=== PATIENT | female | born 1935 | race Caucasian/White ===

== ENCOUNTER → 2016-05-11 | Outpatient (CLI) | payer MEDICARE, BC | LOC: OD 11:09 | PROVIDERS: ATTEND Family Medicine | DX: E11.9 Type 2 diabetes mellitus without complications (principal) | CPT/HCPCS: 36415; 83036 ==

== ENCOUNTER 2016-09-19 13:57 | Emergency (ER) | payer MEDICARE, BC ==
--- NOTE | 2016-09-19 15:24 | RADIOLOGY REPORT (SQ) ---
EXAM DESCRIPTION: SHOULDER RIGHT 2 OR MORE VIEWS COMPLETED DATE/TIME: 09/19/2016 2:52 pm REASON FOR STUDY: fell sunday COMPARISON: None. NUMBER OF VIEWS: Three views. TECHNIQUE: Internal rotation, external rotation, and Y view images acquired of the right shoulder. LIMITATIONS: None. FINDINGS: MINERALIZATION: Normal. BONES: No acute fracture or dislocation. No worrisome bone lesions. JOINTS: No dislocation. VISUALIZED LUNGS AND RIBS: No pneumothorax. No rib fracture. SOFT TISSUES: No radiopaque foreign body. OTHER: No other significant finding. IMPRESSION: NEGATIVE STUDY OF THE RIGHT SHOULDER. NO RADIOGRAPHIC EVIDENCE OF ACUTE INJURY. TECHNICAL DOCUMENTATION: JOB ID: [id number] [employer]- All Rights Reserved
--- NOTE | 2016-09-19 16:35 | ER Document Report ---
ED Extremity Problem, Upper - General Chief Complaint: Shoulder Pain Stated Complaint: FALL/RIGHT SHOULDER PAIN Time Seen by Provider: 09/19/16 16:23 Mode of Arrival: Wheelchair Information source: Patient, Relative Notes: This is an 81-year-old female who presents with right shoulder pain. She states that one week ago she was bowling with friends when she tripped and fell forward. She states that she injured her right shoulder at the time. She did not hit her head did not lose consciousness. Initially she felt that her arm was improving however the past 2 days she has had increased pain to the right shoulder with certain movements. TRAVEL OUTSIDE OF THE [place] IN LAST 30 DAYS: No - Related Data Allergies/Adverse Reactions: Sulfa (Sulfonamide Antibiotics) Allergy (Unknown, Verified 03/23/16 02:38) Past Medical History - General Information source: Patient - Social History Smoking Status: Unknown if Ever Smoked Family History: Reviewed & Not Pertinent Patient has suicidal ideation: No Patient has homicidal ideation: No - Past Medical History Cardiac Medical History: Reports: Hx Hypercholesterolemia Denies: Hx Atrial Fibrillation, Hx Congestive Heart Failure, Hx Coronary Artery Disease, Hx Heart Attack, Hx Hypertension, Hx Peripheral Vascular Disease , Hx Heart Murmur Pulmonary Medical History: Denies: Hx Tuberculosis Neurological Medical History: Reports: Hx Cerebrovascular Accident - Multiple TIAs. Denies: Hx Seizures Endocrine Medical History: Denies: Hx Graves' Disease, Hx Hyperthyroidism, Hx Hypothyroidism Renal/ Medical History: Reports: Hx Kidney Stones. Denies: Hx Peritoneal Dialysis GI Medical History: Reports: Hx Gastroesophageal Reflux Disease, Hx Ulcer. Denies: Hx Cirrhosis, Hx Crohn's Disease, Hx Hepatitis, Hx Hiatal Hernia, Hx Irritable Bowel, Hx Liver Failure Musculoskeltal Medical History: Denies Hx Arthritis, Denies Hx Multiple Sclerosis Psychiatric Medical History: Reports: Hx Depression Denies: Hx Bipolar Disorder, Hx Dementia, Hx Post Traumatic Stress Disorder, Hx Schizophrenia Infectious Medical History: Denies: Hx Hepatitis Past Surgical History: Reports: Hx Appendectomy - 1958, Hx Cholecystectomy - 1990, Hx Hysterectomy - 1988, Hx Tubal Ligation. Denies: Hx Bowel Surgery, Hx Section, Hx Colostomy, Hx Coronary Artery Bypass Graft, Hx Gastric Bypass Surgery, Hx Herniorrhaphy, Hx Mastectomy, Hx Pacemaker, Hx Tonsillectomy - Immunizations Hx Diphtheria, Pertussis, Tetanus Vaccination: Yes Hx Pneumococcal Vaccination: 01/21/11 Review of Systems - Review of Systems Constitutional: No symptoms reported. denies: Chills, Fever EENT: No symptoms reported Cardiovascular: No symptoms reported. denies: Chest pain Respiratory: No symptoms reported. denies: Short of breath Gastrointestinal: No symptoms reported Genitourinary: No symptoms reported Musculoskeletal: See HPI Skin: No symptoms reported Hematologic/Lymphatic: No symptoms reported Neurological/Psychological: No symptoms reported Physical Exam - Vital signs Vitals: Temp Pulse Resp BP Pulse Ox 98.1 F 87 18 139/81 H 99 09/19/16 14:21 09/19/16 14:21 09/19/16 14:09/19/16 14:21 09/19/16 14:21 - Notes Notes: PHYSICAL EXAMINATION: GENERAL: Well-appearing frail elderly female, pleasant and conversant and in no acute distress. HEAD: Atraumatic, normocephalic. EYES: Pupils equal round and reactive to light, extraocular movements intact, sclera anicteric, conjunctiva are normal. ENT: nares patent, oropharynx clear without exudates. Moist mucous membranes. NECK: Normal range of motion, supple without lymphadenopathy. No midline TTP LUNGS: Breath sounds clear to auscultation bilaterally and equal. No wheezes rales or rhonchi. HEART: Regular rate and rhythm without murmurs ABDOMEN: Soft, nontender, normoactive bowel sounds. EXTREMITIES: Normal range of motion R SHOULDER: No discoloration or external deformity. TTP anterior and posterior shoulder, and R paracervical muscles. Pulses intact, DNVI NEUROLOGICAL: Cranial nerves grossly intact. Normal speech. no Gross focal motor or sensory deficits appreciated PSYCH: Normal mood, normal affect. SKIN: Warm, Dry, normal turgor, no rashes or lesions noted. Course - Vital Signs Vital signs: Temp Pulse Resp BP Pulse Ox 98.1 F 87 18 139/81 H 99 09/19/16 14:21 09/19/16 14:21 09/19/16 14:09/19/16 14:21 09/19/16 14:21 - Diagnostic Test Radiology reviewed: Image reviewed - R shoulder: no fracture, Reports reviewed Discharge - Discharge Clinical Impression: Right shoulder strain Qualifiers: Encounter type: initial encounter Qualified Code(s): S46.911A - Strain of unspecified muscle, fascia and tendon at shoulder and upper arm level, right arm , initial encounter Condition: Stable Additional Instructions: Shoulder Injury You have injured your shoulder. This usually results from stretching or tearing of the tendons during trauma. Time and protection are required in order to heal properly. Many injuries are quite disabling, and should be taken seriously. Initial treatment includes cold packs and a sling to rest the shoulder. The physician has assessed the seriousness of your injury, and has outlined a treatment plan. Understand that this treatment may change, depending on how you progress. If a re-examination was recommended, it is important that you follow up as instructed. Some shoulder injuries (such as partial tear of the rotator cuff) are only suspected after you've failed to improve. Call us if there's severe pain, numbness, or loss of function. Prescriptions: Acetaminophen with Codeine [Tylenol #3 Tablet] 1 each PO Q6HP PRN #12 tablet PRN Reason: For Pain
[2016-09-19] MEDS ORDERED: ACETAMINOPHEN WITH CODEINE #3 TABLET PO ONE (16:38)
[2016-09-19 16:49] VITALS: BP 125/85
== END 2016-09-19 17:00 | disposition home or self-care (01) ==
LOC: ER 13:57
DX: S46.911A Strain of unspecified muscle, fascia and tendon at shoulder and upper arm level, right arm, initial encounter (principal); W01.0XXA Fall on same level from slipping, tripping and stumbling without subsequent striking against object, initial encounter; Y93.54 Activity, bowling; Y92.39 Other specified sports and athletic area as the place of occurrence of the external cause; E78.00 Pure hypercholesterolemia, unspecified; K21.9 Gastro-esophageal reflux disease without esophagitis; Z86.73 Personal history of transient ischemic attack (TIA), and cerebral infarction without residual deficits; Z88.2 Allergy status to sulfonamides; Z87.442 Personal history of urinary calculi; Z90.49 Acquired absence of other specified parts of digestive tract; Z90.710 Acquired absence of both cervix and uterus
CPT/HCPCS: 99283; 73030; L3650

== ENCOUNTER → 2016-09-21 | Outpatient (CLI) | payer MEDICARE, BC ==
[2016-09-21 09:17] LABS: ANION GAP 12 (5-19); BLOOD UREA NITROGEN 25 mg/dL (7-20); CALCIUM 10.2 mg/dL (8.4-10.2); CARBON DIOXIDE 23 mmol/L (22-30); CHLORIDE 107 mmol/L (98-107); CREATININE RESULT 0.96 mg/dL (0.52-1.25); Direct HDL 46 mg/dL (>40); GLUCOSE 106 mg/dL (75-110); POTASSIUM 4.2 mmol/L (3.6-5.0); SODIUM 141.8 mmol/L (137-145); TRIGLYCERIDES 122 mg/dL (<150)
[2016-09-21 09:27] LABS: DIRECT LDL 133 mg/dL (<100)
== END ==
LOC: OD 08:15
PROVIDERS: ATTEND Family Medicine
DX: E11.9 Type 2 diabetes mellitus without complications (principal); E78.5 Hyperlipidemia, unspecified; I10 Essential (primary) hypertension; Z79.899 Other long term (current) drug therapy
CPT/HCPCS: 36415; 80048; 80061; 82043; 83036; 84443

== ENCOUNTER 2017-05-19 22:29 | Emergency (ER) | payer MEDICARE, BC ==
[2017-05-19] MEDS ORDERED: MORPHINE SULFATE 10 MG/ML INJ IM ONE (23:45)
[2017-05-19] MEDS ORDERED: ONDANSETRON 4 MG TAB.RAPDIS PO ONE (23:45)
--- NOTE | 2017-05-19 23:54 | ER Document Report ---
ED General - General Chief Complaint: Fall Injury Stated Complaint: FALL R ARM INJURY Time Seen by Provider: 05/19/17 23:29 TRAVEL OUTSIDE OF THE [place] IN LAST 30 DAYS: No - HPI Patient complains to provider of: left arm pain Notes: Patient coming in after a trip and fall at home landing on her left side patient complains of left arm pain. Patient states most pain is at left wrist however does complain of elbow and left shoulder pain. Denies any loss of consciousness hitting her head is not on any blood thinning medication according to the patient. Patient resting comfortably upon my evaluation. - Related Data Allergies/Adverse Reactions: Sulfa (Sulfonamide Antibiotics) Allergy (Unknown, Verified 05/19/17 23:20) Past Medical History - Social History Smoking Status: Unknown if Ever Smoked Family History: Reviewed & Not Pertinent - Past Medical History Cardiac Medical History: Reports: Hx Hypercholesterolemia Denies: Hx Atrial Fibrillation, Hx Congestive Heart Failure, Hx Coronary Artery Disease, Hx Heart Attack, Hx Hypertension, Hx Peripheral Vascular Disease , Hx Heart Murmur Pulmonary Medical History: Denies: Hx Tuberculosis Neurological Medical History: Reports: Hx Cerebrovascular Accident - Multiple TIAs. Denies: Hx Seizures Endocrine Medical History: Denies: Hx Graves' Disease, Hx Hyperthyroidism, Hx Hypothyroidism Renal/ Medical History: Reports: Hx Kidney Stones. Denies: Hx Peritoneal Dialysis GI Medical History: Reports: Hx Gastroesophageal Reflux Disease, Hx Ulcer. Denies: Hx Cirrhosis, Hx Crohn's Disease, Hx Hepatitis, Hx Hiatal Hernia, Hx Irritable Bowel, Hx Liver Failure, Hx Pancreatitis Musculoskeltal Medical History: Denies Hx Arthritis, Denies Hx Multiple Sclerosis Psychiatric Medical History: Reports: Hx Depression Denies: Hx Bipolar Disorder, Hx Dementia, Hx Post Traumatic Stress Disorder, Hx Schizophrenia Infectious Medical History: Denies: Hx Hepatitis Past Surgical History: Reports: Hx Appendectomy - 195, Hx Cholecystectomy - 1990, Hx Hysterectomy - 1988, Hx Tubal Ligation. Denies: Hx Bowel Surgery, Hx Section, Hx Colostomy, Hx Coronary Artery Bypass Graft, Hx Gastric Bypass Surgery, Hx Herniorrhaphy, Hx Mastectomy, Hx Pacemaker, Hx Tonsillectomy - Immunizations Hx Diphtheria, Pertussis, Tetanus Vaccination: Yes Hx Pneumococcal Vaccination: 01/21/11 Review of Systems - Review of Systems Constitutional: No symptoms reported EENT: No symptoms reported Cardiovascular: No symptoms reported Respiratory: No symptoms reported Gastrointestinal: No symptoms reported Genitourinary: No symptoms reported Female Genitourinary: No symptoms reported Musculoskeletal: Other - Left arm pain Skin: No symptoms reported Hematologic/Lymphatic: No symptoms reported Neurological/Psychological: No symptoms reported -: Yes All other systems reviewed and negative Physical Exam - Vital signs Vitals: Temp Pulse Resp BP Pulse Ox 97.8 F 72 16 131/61 H 95 05/19/17 23:19 05/19/17 23:19 05/19/17 23:19 05/19/17 23:19 05/19/17 23:19 Interpretation: Normal - General General appearance: Appears well, Alert - HEENT Head: Normocephalic, Atraumatic Eyes: Normal Pupils: PERRL - Respiratory Respiratory status: No respiratory distress Chest status: Nontender Breath sounds: Normal Chest palpation: Normal - Cardiovascular Rhythm: Regular Heart sounds: Normal auscultation Murmur: No - Abdominal Inspection: Normal Distension: No distension Bowel sounds: Normal Tenderness: Nontender Organomegaly: No organomegaly - Back Back: Normal, Nontender - Extremities General upper extremity: Normal color, Normal ROM, Normal temperature. No: Normal inspection - Patient's examination of left wrist shows swelling decreased range of motion painful range of motion of the wrist. Patient also has tenderness to the left elbow and to the left shoulder however no deformities. Capillary refill intact General lower extremity: Normal inspection, Nontender, Normal color, Normal ROM , Normal temperature, Normal weight bearing. No: Flory's sign - Neurological Neuro grossly intact: Yes Cognition: Normal Orientation: AAOx4 Kacey Coma Scale Eye Opening: Spontaneous Holt Coma Scale Verbal: Oriented Kacey Coma Scale Motor: Obeys Commands Kacey Coma Scale Total: 15 Speech: Normal Motor strength normal: LUE, RUE, LLE, RLE Sensory: Normal - Psychological Associated symptoms: Normal affect, Normal mood - Skin Skin Temperature: Warm Skin Moisture: Dry Skin Color: Normal Course - Vital Signs Vital signs: Temp Pulse Resp BP Pulse Ox 97.8 F 72 16 131/61 H 95 05/19/17 23:19 05/19/17 23:19 05/19/17 23:19 05/19/17 23:19 05/19/17 23:19 Procedures - Immobilization Left Wrist Pre-Proc Neuro Vasc Exam: Normal Immobilizer type: Thumb spica Performed by: PCT Post-Proc Neuro Vasc Exam: Normal Alignment checked and good: Yes Discharge - Discharge Clinical Impression: Fracture of left distal radius Qualifiers: Encounter type: initial encounter Fracture type: closed Fracture morphology: unspecified fracture morphology Qualified Code(s): S52.502A - Unspecified fracture of the lower end of left radius, initial encounter for closed fracture Condition: Good Disposition: HOME, SELF-CARE Instructions: Fractured Radius ([facility]), Oral Narcotic Medication ([facility]) Additional Instructions: Take Tylenol Motrin for your pain. Take Ultram for severe pain. Please be careful in taking narcotic pain medication is that this will make you sleepy and unsteady on her feet increasing her risk of falling again. Please follow- up with orthopedic doctor provided. Prescriptions: Tramadol HCl [Ultram 50 mg Tablet] 50 mg PO ASDIR PRN #20 tablet PRN Reason: Referrals: MIKE PARNELL MD [Primary Care Provider] - Follow up as needed FRAN WEINSTEIN MD [ACTIVE STAFF] - 05/21/17 (Call for appointment)
--- NOTE | 2017-05-20 01:00 | RADIOLOGY REPORT (SQ) ---
EXAM DESCRIPTION: ELBOW LEFT OVER 2 VIEWS CLINICAL HISTORY: fall left arm pain wrist deformity COMPARISON: None. FINDINGS: 3 views of the left elbow. No acute fracture or dislocation. No definite joint effusion. Mild osteopenia. IMPRESSION: No acute fracture or dislocation.
--- NOTE | 2017-05-20 01:03 | RADIOLOGY REPORT (SQ) ---
EXAM DESCRIPTION: SHOULDER LEFT 2 OR MORE VIEWS CLINICAL HISTORY: fall left arm pain wrist deformity COMPARISON: None. FINDINGS: 3 views of the left shoulder. No acute fracture or dislocation. Osteopenia.. No abnormalities of the acromioclavicular joint. No left-sided rib fracture identified. No pneumothorax in the visualized left lung. Atherosclerotic calcification of the thoracic aorta. IMPRESSION: 1. No acute fracture or dislocation.
--- NOTE | 2017-05-20 01:04 | RADIOLOGY REPORT (SQ) ---
EXAM DESCRIPTION: WRIST LEFT 3 VIEWS CLINICAL HISTORY: fall left arm pain wrist deformity COMPARISON: None. FINDINGS: 3 views of the left wrist. Acute mildly displaced mildly dorsally angulated fracture of the distal left radial metaphysis. No definite ulnar fracture identified. Atherosclerotic vascular calcification. Chondrocalcinosis of the wrist. Osteopenia. Degenerative change of the first carpometacarpal joint. IMPRESSION: 1. Acute mildly displaced and dorsally angulated fracture of the distal left radial metaphysis.
[2017-05-20] MEDS ORDERED: ACETAMINOPHEN 325 MG TABLET PO ONE (01:55)
[2017-05-20] MEDS ORDERED: TRAMADOL HCL 50 MG TABLET PO ONE (02:17)
[2017-05-20 02:26] VITALS: BP 141/67
== END 2017-05-20 02:25 | disposition home or self-care (01) ==
LOC: ER 22:29
DX: S52.502A Unspecified fracture of the lower end of left radius, initial encounter for closed fracture (principal); M25.532 Pain in left wrist; M25.512 Pain in left shoulder; M25.522 Pain in left elbow; W19.XXXA Unspecified fall, initial encounter; Y93.89 Activity, other specified; Y92.009 Unspecified place in unspecified non-institutional (private) residence as the place of occurrence of the external cause; Z88.2 Allergy status to sulfonamides
CPT/HCPCS: 99283; 96372; 73080; 73030; 73110; 29125; A9270 ×3; J2270; S0119

== ENCOUNTER 2017-05-24 11:51 | Day surgery (SDC) | payer MEDICARE, BC ==
[2017-05-22 11:05] LABS: ABSOLUTE EOSINOPHILS # (AUTO) 0.1 10^3/uL (0.0-0.6); ABSOLUTE LYMPHOCYTES (AUTO) 1.4 10^3/uL (0.5-4.7); ABSOLUTE MONOCYTES (AUTO) 0.6 10^3/uL (0.1-1.4); ABSOLUTE NEUT (AUTO) 5.2 10^3/uL (1.7-8.2); BASOPHILS % (AUTO) 0.5 % (0-2); EOSINOPHILS % (AUTO) 1.9 % (0-6); HEMATOCRIT 36.6 % (36.0-47.0); HEMOGLOBIN 12.5 g/dL (12.0-15.5); LYMPHOCYTES % (AUTO) 19.5 % (13-45); MEAN CORPUSCULAR HEMOGLOBIN 32.4 pg (27.0-33.4); MEAN CORPUSCULAR HGB CONC 34.2 g/dL (32.0-36.0); MEAN CORPUSCULAR VOLUME 95 fl (80-97); PLATELET COUNT 216 10^3/uL (150-450); RED BLOOD COUNT 3.86 10^6/uL (3.72-5.28); RED CELL DISTRIBUTION WIDTH 13.9 % (11.5-14.0); SEGMENTED NEUTROPHILS % (AUTO) 70.1 % (42-78); TOTAL CELLS COUNTED % (AUTO) 100 %; WHITE BLOOD COUNT 7.4 10^3/uL (4.0-10.5)
[2017-05-22 11:09] LABS: APPEARANCE,URINE SLIGHTLY-CLOUDY; BILIRUBIN,URINE NEGATIVE (NEGATIVE); COLOR,URINE YELLOW; GLUCOSE, URINE NEGATIVE (NEGATIVE); KETONES,URINE NEGATIVE (NEGATIVE); URINE SPECIFIC GRAVITY 1.017
[2017-05-22 11:10] LABS: LEUKOCYTE ESTERASE,URINE LARGE (NEGATIVE); NITRITE,URINE NEGATIVE (NEGATIVE); PROTEIN,URINE NEGATIVE (NEGATIVE); UROBILINOGEN,URINE NEGATIVE mg/dL (<2.0)
[2017-05-22 11:27] LABS: ANION GAP 11 (5-19); BLOOD UREA NITROGEN 22 mg/dL (7-20); CALCIUM 10.2 mg/dL (8.4-10.2); CARBON DIOXIDE 27 mmol/L (22-30); CHLORIDE 102 mmol/L (98-107); GLUCOSE 106 mg/dL (75-110); POTASSIUM 3.9 mmol/L (3.6-5.0); SODIUM 139.5 mmol/L (137-145)
--- NOTE | 2017-05-22 11:59 | RADIOLOGY REPORT (SQ) ---
EXAM DESCRIPTION: CHEST PA/LATERAL COMPLETED DATE/TIME: 05/22/2017 11:13 am REASON FOR STUDY: PRE OP COMPARISON: Two-view chest 03/23/2016, 08/27/2011 EXAM PARAMETERS: NUMBER OF VIEWS: two views TECHNIQUE: Digital Frontal and Lateral radiographic views of the chest acquired. RADIATION DOSE: NA LIMITATIONS: none FINDINGS: LUNGS AND PLEURA: No opacities, masses or pneumothorax. No pleural effusion. MEDIASTINUM AND HILAR STRUCTURES: Fullness right paratracheal region likely represents tortuous brach iocephalic vessels, stable compared to 2011 HEART AND VASCULAR STRUCTURES: Heart normal size. No evidence for failure. BONES: Osteoporotic. Chronic appearing T5 vertebral body 25 to 50% compression deformity. HARDWARE: Clips right upper quadrant post cholecystectomy OTHER: No other significant finding. IMPRESSION: No acute findings TECHNICAL DOCUMENTATION: JOB ID: [id number] [employer]- All Rights Reserved
--- NOTE | 2017-05-22 13:03 | EKG REPORT ---
SEVERITY:- NORMAL ECG - SINUS RHYTHM : Confirmed by: Simon Chen MD 22-May-2017 13:01:35
[~2017-05-24 11:51] MED LIST: CEFAZOLIN 2 GM/D5W RTU 2 GM/50 ML RTUPB IV PRN; DEXAMETHASONE SOD PHOSPHATE INJ 4 MG/1 ML VIAL ONE; GLYCOPYRROLATE INJ 0.4 MG/2 ML VIAL ONE; LACTATED RINGERS 1000 ML IV PRN; LIDOCAINE 0.5% INJ-PF (5 MG/ML) 50 ML SDV SUBCUT PRN; ONDANSETRON HCL INJ/PF 4 MG/2 ML SDV ONE; SUCCINYLCHOLINE CHLORIDE INJ 200 MG/10 ML VIAL ONE
[2017-05-24 12:27] LABS: INTERNATIONAL RATION (INR) 0.97; PROTHROMBIN TIME 13.6 SEC (11.4-15.4)
[2017-05-24 12:28] LABS: PARTIAL THROMBOPLASTIN TIME 25.7 SEC (23.5-35.8)
[2017-05-24] MEDS ORDERED: FENTANYL CITRATE INJ/PF 100 MCG/2 ML AMPUL ONE (14:41)
[2017-05-24] MEDS ORDERED: HYDROMORPHONE HCL INJ/PF 2 MG/ML AMPULE ONE (14:42)
[2017-05-24] MEDS ORDERED: ACETAMINOPHEN 100 ML IV ONE (14:42)
[2017-05-24] MEDS ORDERED: PROPOFOL INJ 200 MG/20 ML VIAL IV ONE (14:42)
[2017-05-24] MEDS ORDERED: MIDAZOLAM 2 MG/2 ML INJ ONE (14:42)
[2017-05-24] MEDS ORDERED: MORPHINE SULFATE 10 MG/ML INJ IV PRN (15:26)
[2017-05-24] MEDS ORDERED: MEPERIDINE HCL/PF INJ 25 MG/1 ML DISP.SYRIN IV PRN (15:26)
[2017-05-24] MEDS ORDERED: DIPHENHYDRAMINE HCL 50 MG/ML VIAL IV PRN (15:26)
[2017-05-24] MEDS ORDERED: PROMETHAZINE HCL INJ 25 MG/1 ML VIAL IV PRN (15:26)
[2017-05-24] MEDS ORDERED: FENTANYL CITRATE INJ/PF 100 MCG/2 ML AMPUL IV PRN ×3 (15:26)
--- NOTE | 2017-05-24 16:35 | RADIOLOGY REPORT (SQ) ---
EXAM DESCRIPTION: NO CHG FLUORO; WRIST LEFT 2 VIEWS COMPLETED DATE/TIME: 05/24/2017 4:26 pm REASON FOR STUDY: ORIF LEFT WRIST S52.531A COLLES' FRACTURE OF RIGHT RADIUS, INIT FOR CLOS FX Z79.0 1 CORRECTION (CURRENT) USE OF ANTICOAGULANTS COMPARISON: 05/20/2017. FLUOROSCOPY TIME: 1 minutes 19 seconds. 3 images saved to PACS. TECHNIQUE: Intra-operative images acquired during surgical procedure to evaluate progress. NUMBER OF IMAGES: 3 images. LIMITATIONS: None. FINDINGS: Surgical repair of the distal radius fracture with placement of hardware. IMPRESSION: IMAGE(S) OBTAINED DURING PROCEDURE. COMMENT: Quality ID [id number]: Final reports for procedures using fluoroscopy that document radiation exp osure indices, or exposure time and number of fluorographic images (if radiation exposure indices are not available) Please consult full operative report of the attending physician for description of the procedure. TECHNICAL DOCUMENTATION: JOB ID: [id number] [employer]- All Rights Reserved
--- NOTE | 2017-05-24 16:35 | RADIOLOGY REPORT (SQ) ---
EXAM DESCRIPTION: NO CHG FLUORO; WRIST LEFT 2 VIEWS COMPLETED DATE/TIME: 05/24/2017 4:26 pm REASON FOR STUDY: ORIF LEFT WRIST S52.531A COLLES' FRACTURE OF RIGHT RADIUS, INIT FOR CLOS FX Z79.0 1 FDC (CURRENT) USE OF ANTICOAGULANTS COMPARISON: 05/20/2017. FLUOROSCOPY TIME: 1 minutes 19 seconds. 3 images saved to PACS. TECHNIQUE: Intra-operative images acquired during surgical procedure to evaluate progress. NUMBER OF IMAGES: 3 images. LIMITATIONS: None. FINDINGS: Surgical repair of the distal radius fracture with placement of hardware. IMPRESSION: IMAGE(S) OBTAINED DURING PROCEDURE. COMMENT: Quality ID [id number]: Final reports for procedures using fluoroscopy that document radiation exp osure indices, or exposure time and number of fluorographic images (if radiation exposure indices are not available) Please consult full operative report of the attending physician for description of the procedure. TECHNICAL DOCUMENTATION: JOB ID: [id number] [employer]- All Rights Reserved
--- NOTE | 2017-05-24 16:39 | Operative Report ---
Operative Report DATE OF SURGERY: 05/24/17 PREOPERATIVE DIAGNOSIS: Displaced left Colles' fracture POSTOPERATIVE DIAGNOSIS: Same OPERATION: ORIF of left distal radius fracture SURGEON: FRAN KNAPP ANESTHESIA: GA TISSUE REMOVED OR ALTERED: none COMPLICATIONS: none ESTIMATED BLOOD LOSS: less than 10mL INTRAOPERATIVE FINDINGS: as above PROCEDURE: Procedure In Detail: Patient was seen and evaluated in the preoperative holding area. The left upper extremity was initialized and marked. Patient received 2g of Ancef IV for bacterial prophylaxis. Patient was taken back to the operative room where transferred to the operative table and placed under general anesthesia. Once they were adequately anesthetized and a nonsterile tourniquet was placed on his left upper extremity. A surgical team debriefing was performed ensuring all instrumentation was available, the surgical procedure was discussed with possible concerns reviewed. The left upper extremity was prepped with chlorhexidine and alcohol and draped in a sterile fashion. A timeout was done identifying correct patient, procedure and extremity everyone in attendance agree with this and verbalized no concerns.The extremity was exsanguinated the tourniquet was inflated to 250 mmHg. A longitudinal skin incision was made via a volar approach of Storm along the FCR tendon sheath. The FCR tendon sheath was opened and the FCR retracted ulnarly, the palmar cutaneous patient median nerve was identified and protected throughout the entirety of the case. The radial artery was identified and retracted radially. Dissection was done down to the FPL which was carefully sweeped ulnarly. This brought me to the pronator quadratus which was elevated off of the distal radius via sharp dissection with a 15 blade to allow later repair. The fracture was then identified and a gentle reduction was performed. A near anatomic reduction was then obtained and a Sarah 4 hole volar distal radius plate was then placed into position and fixated with a K wire proximally x2. AP and lateral radiographs were then obtained demonstrating appropriate placement of the plate and near anatomic reduction of the fracture. I then used a large reduction tenaculum bringing the plate down to bone distally. I drilled the near cortex and placed a cortical screw bringing the plate further down to bone, avoiding any liftoff of the plate from the volar cortex that could cause flexor tendon irritation post-operativley. I then drilled the near cortex and to but not thru the far cortex and measured the appropriate size screw, locking screws were then placed in the remaining holes. The previous cortex screw was removed and replaced with a locking screw. I then drilled 1 additional screw were placed into the styloid giving further stability to the radial styloid piece. AP and lateral radius were then done confirming appropriate placement of plate with no evidence of penetration intra-articular or within the DRUJ. I then turned my attention to the proximal screws. I drilled bicortically bringing the plate down to bone with a cortex screw. The remaining 2 holes proximally were drilled bicortically placing the appropriate size cortex and the proximal most hole and a locking screw in the distal shaft hole. AP and lateral radiographs were done confirming appropriate placement of the plate and reduction of the fracture there was episcopal of radial height, radial inclination and volar tilt. No evidence of dorsal screw prominence or intra-articular penetration of the DRUJ or radiocarpal joint. I then copious irrigated the wound with normal saline. There was no evidence of DRUJ instability on examination, Negative Watkins's test, No crepitus with range of motion at the radiocarpal joint or DRUJ. I then closed the pronator quadratus with interrupted 3-0 Monocryl suture. Subcutaneous tissues were closed with interrupted 3-0 Monocryl suture. The skin was closed with a running subcuticular 4-0 Monocryl suture which was reinforced with Dermabond and Steri-Strips. 10 mL of 0.5% Marcaine were injected for postoperative pain control. The tourniquet was then deflated. Was dressed with sterile 4 x 4's and patient was placed in a well-padded volar splint with bias wrap. Sponge counts, instrument counts and needle counts were correct. There was no intraoperative complications patient tolerated procedure well stable to PACU. Postoperative plan: Patient will be switched to a removal brace at her first postoperative followup visit and begin range of motion. She is encouraged to start vitamin C 500 mg daily for 51 days. Will obtain radiographs at followup of the wrist.
--- NOTE | 2017-05-24 16:52 | PDOC DISCHARGE SUMMARY ---
Discharge Summary (SDC) - Discharge Final Diagnosis: ORIF of left distal radius fracture Date of Surgery: 05/24/17 Discharge Date: 05/24/17 Condition: Good Treatment or Instructions: Keep the splint dry clean and intact. Elevate left upper extremity and ice it as needed Call if patient develops any fevers chills increased pain. If not then follow-up in 10-14 days. Prescriptions: Oxycodone HCl/Acetaminophen [Percocet 5-325 mg Tablet] 1 tab PO ASDIR PRN #25 tablet PRN Reason: Referrals: MIKE PARNELL MD [Primary Care Provider] - Discharge Diet: As Tolerated Respiratory Treatments at Home: Deep Breathing/Coughing Discharge Activity: No Driving, No Lifting/Push/Pulling Report the Following to Your Physician Immediately: Shortness of Breath, Vomiting, Fever over 101 Degrees, Unusual Bleeding, Redness, Swelling, Warmth, Increased Soreness, Drainage-Yellow
[2017-05-24] MEDS ORDERED: OXYCODONE-ACETAMINOPHEN 5-325 MG TABLET PO PRN (17:14)
[2017-05-24 19:25] VITALS: BP 125/68
== END 2017-05-24 19:20 | disposition home or self-care (01) ==
LOC: OROUT 11:51
PROVIDERS: ATTEND Orthopaedic Surgery
PROC: 0PSJ04Z Reposition Left Radius with Internal Fixation Device, Open Approach (ICD-10-PCS; principal; 2017-05-24 14:15)
DX: S52.531A Colles' fracture of right radius, initial encounter for closed fracture (principal); W19.XXXA Unspecified fall, initial encounter; M25.532 Pain in left wrist; K21.9 Gastro-esophageal reflux disease without esophagitis; D11.9 Benign neoplasm of major salivary gland, unspecified; E78.5 Hyperlipidemia, unspecified; F03.90 Unspecified dementia, unspecified severity, without behavioral disturbance, psychotic disturbance, mood disturbance, and anxiety; Z79.01 Long term (current) use of anticoagulants; Z88.2 Allergy status to sulfonamides; Z86.73 Personal history of transient ischemic attack (TIA), and cerebral infarction without residual deficits; Z79.899 Other long term (current) drug therapy; Z79.891 Long term (current) use of opiate analgesic
CPT/HCPCS: 93005; 36415 ×2; 82962; 85025; 85610; 85730; 80048; 81001; 71046; 73100; 93010; 25607; C1713 ×4; J2250; J1100; J3010; A9270; J0330; J2405; J2704; J0690; J0131; 01830; J1170

== ENCOUNTER 2017-06-28 17:47 | Observation (INO) | payer MEDICARE, BC ==
--- NOTE | 2017-06-28 17:57 | ER Document Report ---
ED Medical Screen (RME) - General Chief Complaint: S/S of Possible Stroke Stated Complaint: DIZZINESS Time Seen by Provider: 06/28/17 17:56 Notes: RME DISCLOSURE I have seen this patient as part of a Rapid Medical Evaluation and, if applicable, placed any initially appropriate orders. The patient will be seen and fully evaluated, including a full history and physical exam, by a provider ( in Main ED or Fast Track) when a room becomes available. 81-year-old female past medical history strokes here with family who states that approximately 2-1/2-3 hours ago, she fell and complained of dizziness as well as right facial droop and slurred speech. They brought her here for evaluation. She was activated as a code stroke. TRAVEL OUTSIDE OF THE [place] IN LAST 30 DAYS: No - Related Data Allergies/Adverse Reactions: Sulfa (Sulfonamide Antibiotics) Allergy (Unknown, Verified 06/28/17 17:49) Past Medical History - Past Medical History Cardiac Medical History: Reports: Hx Hypercholesterolemia Denies: Hx Atrial Fibrillation, Hx Congestive Heart Failure, Hx Coronary Artery Disease, Hx Heart Attack, Hx Hypertension, Hx Peripheral Vascular Disease , Hx Heart Murmur Pulmonary Medical History: Denies: Hx Asthma, Hx Bronchitis, Hx COPD, Hx Pneumonia, Hx Tuberculosis Neurological Medical History: Denies: Hx Cerebrovascular Accident, Hx Seizures Endocrine Medical History: Denies: Hx Graves' Disease, Hx Hyperthyroidism, Hx Hypothyroidism Renal/ Medical History: Reports: Hx Kidney Stones. Denies: Hx Peritoneal Dialysis GI Medical History: Reports: Hx Gastroesophageal Reflux Disease, Hx Ulcer. Denies: Hx Cirrhosis, Hx Crohn's Disease, Hx Hepatitis, Hx Hiatal Hernia, Hx Irritable Bowel, Hx Liver Failure, Hx Pancreatitis Musculoskeltal Medical History: Reports Hx Arthritis, Denies Hx Multiple Sclerosis Psychiatric Medical History: Reports: Hx Depression Denies: Hx Bipolar Disorder, Hx Dementia, Hx Post Traumatic Stress Disorder, Hx Schizophrenia Infectious Medical History: Denies: Hx Hepatitis Past Surgical History: Reports: Hx Appendectomy - 1958, Hx Cholecystectomy - 1990, Hx Hysterectomy - 1988, Hx Tubal Ligation. Denies: Hx Bowel Surgery, Hx Section, Hx Colostomy, Hx Coronary Artery Bypass Graft, Hx Gastric Bypass Surgery, Hx Herniorrhaphy, Hx Mastectomy, Hx Pacemaker, Hx Tonsillectomy - Immunizations Hx Diphtheria, Pertussis, Tetanus Vaccination: - unknon History of Influenza Vaccine for 01/2017 - 06/2017 Season: Yes Influenza Administration Date for 01/2017 - 06/2017 Season: 02/21/17
--- NOTE | 2017-06-28 18:20 | RADIOLOGY REPORT (SQ) ---
EXAM DESCRIPTION: CT HEAD WITHOUT COMPLETED DATE/TIME: 06/28/2017 6:02 pm REASON FOR STUDY: stroke alert COMPARISON: 05/14/2015 TECHNIQUE: Axial images acquired through the brain without intravenous contrast. Images reviewed wi th bone, brain and subdural windows. Images stored on PACS. All CT scanners at this facility use dose modulation, iterative reconstruction, and/or weight based d osing when appropriate to reduce radiation dose to as low as reasonably achievable (ALARA). [facility]: Dose Right [facility]: CareDose [facility]: Dose Right [facility]: Teradose 4D [facility]: [employer] RADIATION DOSE: CT Rad equipment meets quality standard of care and radiation dose reduction techniq ues were employed. CTDIvol: 64.6 mGy. DLP: 1163 mGy-cm. mGy. LIMITATIONS: None. FINDINGS: VENTRICLES: Normal size and contour. CEREBRUM: No masses. No hemorrhage. No midline shift. No evidence for acute infarction. Areas of l ow density in the white matter most likely chronic small vessel ischemic changes. CEREBELLUM: No masses. No hemorrhage. No alteration of density. No evidence for acute infarction. EXTRAAXIAL SPACES: No fluid collections. No masses. ORBITS AND GLOBE: No intra- or extraconal masses. Normal contour of globe without masses. CALVARIUM: No fracture. PARANASAL SINUSES: No fluid or mucosal thickening. SOFT TISSUES: No mass or hematoma. OTHER: No other significant finding. IMPRESSION: MICROVASCULAR ISCHEMIA AND GENERALIZED ATROPHY. NO ACUTE IMAGING FINDINGS IN THE BRAIN EVIDENCE OF ACUTE STROKE: NO. COMMENT: The findings were discussed with the ordering physician at 1815 hours on this date. Quality ID # [id number]: Final reports with documentation of one or more dose reduction techniques (e.g., Au tomated exposure control, adjustment of the mA and/or kV according to patient size, use of iterative reconstruction technique) TECHNICAL DOCUMENTATION: JOB ID: [id number] [employer]- All Rights Reserved Reading location - IP/workstation name: [email or web address]
[2017-06-28 18:38] LABS: INTERNATIONAL RATION (INR) 0.93; PARTIAL THROMBOPLASTIN TIME 25.8 SEC (23.5-35.8)
[2017-06-28 18:43] LABS: PROTHROMBIN TIME 13.1 SEC (11.4-15.4)
--- NOTE | 2017-06-28 18:59 | RADIOLOGY REPORT (SQ) ---
EXAM DESCRIPTION: CHEST SINGLE VIEW COMPLETED DATE/TIME: 06/28/2017 6:06 pm REASON FOR STUDY: STROKE ALERT COMPARISON: 05/22/2017 EXAM PARAMETERS: NUMBER OF VIEWS: One view. TECHNIQUE: Single frontal radiographic view of the chest acquired. RADIATION DOSE: NA LIMITATIONS: Patient has made a shallow inspiration. FINDINGS: LUNGS AND PLEURA: No opacities, masses or pneumothorax. No pleural effusion. MEDIASTINUM AND HILAR STRUCTURES: No masses. Contour normal. HEART AND VASCULAR STRUCTURES: The configuration of the heart and mediastinal structures is unchanged . Tortuous calcified thoracic aorta is again identified. BONES: No acute findings. HARDWARE: None in the chest. OTHER: No other significant finding. IMPRESSION: No significant interval change. No acute findings. Other findings as noted above. TECHNICAL DOCUMENTATION: JOB ID: [id number] [employer]- All Rights Reserved Reading location - IP/workstation name: [email or web address]
[2017-06-28 19:04] LABS: ALANINE AMINOTRANSFERASE 22 U/L (9-52); ALBUMIN 4.1 g/dL (3.5-5.0); ALKALINE PHOSPHATASE 70 U/L (38-126); ANION GAP 10 (5-19); ASPARTATE AMINO TRANSFERASE 20 U/L (14-36); BILIRUBIN,DIRECT 0.2 mg/dL (0.0-0.4); BILIRUBIN,TOTAL 0.2 mg/dL (0.2-1.3); BLOOD UREA NITROGEN 22 mg/dL (7-20); CALCIUM 9.7 mg/dL (8.4-10.2); CARBON DIOXIDE 26 mmol/L (22-30); CHLORIDE 105 mmol/L (98-107); GLUCOSE 89 mg/dL (75-110); SODIUM 141.2 mmol/L (137-145); TOTAL PROTEIN 6.6 g/dL (6.3-8.2)
[2017-06-28 19:13] LABS: ABSOLUTE EOSINOPHILS # (AUTO) 0.2 10^3/uL (0.0-0.6); ABSOLUTE LYMPHOCYTES (AUTO) 1.7 10^3/uL (0.5-4.7); ABSOLUTE MONOCYTES (AUTO) 0.6 10^3/uL (0.1-1.4); ABSOLUTE NEUT (AUTO) 2.7 10^3/uL (1.7-8.2); BASOPHILS % (AUTO) 0.5 % (0-2); EOSINOPHILS % (AUTO) 3.3 % (0-6); HEMATOCRIT 34.3 % (36.0-47.0); HEMOGLOBIN 11.6 g/dL (12.0-15.5); LYMPHOCYTES % (AUTO) 32.3 % (13-45); MEAN CORPUSCULAR HEMOGLOBIN 32.3 pg (27.0-33.4); MEAN CORPUSCULAR HGB CONC 33.9 g/dL (32.0-36.0); MEAN CORPUSCULAR VOLUME 95 fl (80-97); MONOCYTES % (AUTO) 11.7 % (3-13); PLATELET COUNT 206 10^3/uL (150-450); RED CELL DISTRIBUTION WIDTH 13.9 % (11.5-14.0); SEGMENTED NEUTROPHILS % (AUTO) 52.2 % (42-78); TOTAL CELLS COUNTED % (AUTO) 100 %; WHITE BLOOD COUNT 5.1 10^3/uL (4.0-10.5)
--- NOTE | 2017-06-28 19:17 | ER Document Report ---
ED General - General Chief Complaint: S/S of Possible Stroke Stated Complaint: DIZZINESS Time Seen by Provider: 06/28/17 17:56 Mode of Arrival: Ambulatory Information source: Patient Notes: 81-year-old female history of multiple TIAs who is on Plavix and aspirin full dose every other day presents with complaints of sudden weakness in lower extremities inability to ambulate falls. Patient fell once yesterday once a day , however after the fall today family checked on that she was fine however later on in the day she began having slurred speech right facial droop left leg weakness, the symptoms began to improve upon arrival to the emergency department TRAVEL OUTSIDE OF THE [place] IN LAST 30 DAYS: No - HPI Onset: Just prior to arrival Onset/Duration: Sudden Quality of pain: No pain Severity: Moderate Pain Level: Denies Associated symptoms: Weakness, Other Exacerbated by: Denies Relieved by: Denies Similar symptoms previously: Yes Recently seen / treated by doctor: Yes - Related Data Allergies/Adverse Reactions: Sulfa (Sulfonamide Antibiotics) Allergy (Unknown, Verified 06/28/17 17:49) Past Medical History - Social History Smoking Status: Never Smoker Cigarette use (# per day): No Chew tobacco use (# tins/day): No Smoking Education Provided: No Family History: Reviewed & Not Pertinent Patient has suicidal ideation: No Patient has homicidal ideation: No - Past Medical History Cardiac Medical History: Reports: Hx Hypercholesterolemia Denies: Hx Atrial Fibrillation, Hx Congestive Heart Failure, Hx Coronary Artery Disease, Hx Heart Attack, Hx Hypertension, Hx Peripheral Vascular Disease , Hx Heart Murmur Pulmonary Medical History: Denies: Hx Asthma, Hx Bronchitis, Hx COPD, Hx Pneumonia, Hx Tuberculosis Neurological Medical History: Denies: Hx Cerebrovascular Accident, Hx Seizures Endocrine Medical History: Denies: Hx Graves' Disease, Hx Hyperthyroidism, Hx Hypothyroidism Renal/ Medical History: Reports: Hx Kidney Stones. Denies: Hx Peritoneal Dialysis GI Medical History: Reports: Hx Gastroesophageal Reflux Disease, Hx Ulcer. Denies: Hx Cirrhosis, Hx Crohn's Disease, Hx Hepatitis, Hx Hiatal Hernia, Hx Irritable Bowel, Hx Liver Failure, Hx Pancreatitis Musculoskeltal Medical History: Reports Hx Arthritis, Denies Hx Multiple Sclerosis Psychiatric Medical History: Reports: Hx Depression Denies: Hx Bipolar Disorder, Hx Dementia, Hx Post Traumatic Stress Disorder, Hx Schizophrenia Infectious Medical History: Denies: Hx Hepatitis Past Surgical History: Reports: Hx Appendectomy - 1959, Hx Cholecystectomy - 1990, Hx Hysterectomy, Hx Tubal Ligation. Denies: Hx Bowel Surgery, Hx Section, Hx Colostomy, Hx Coronary Artery Bypass Graft, Hx Gastric Bypass Surgery, Hx Herniorrhaphy, Hx Mastectomy, Hx Pacemaker, Hx Tonsillectomy - Immunizations Hx Diphtheria, Pertussis, Tetanus Vaccination: - unknon Hx Pneumococcal Vaccination: 04/23/16 Review of Systems - Review of Systems Notes: REVIEW OF SYSTEMS: CONSTITUTIONAL : Denies fever, chills, or sweats. Denies recent illness. EENT: Denies eye, ear, throat, or mouth pain or symptoms. Denies nasal or sinus congestion or discharge. Denies throat, tongue, or mouth swelling or difficulty swallowing. CARDIOVASCULAR: Denies chest pain. Denies palpitations or racing or irregular heart beat. Denies ankle edema. RESPIRATORY: Denies cough, cold, or chest congestion. Denies shortness of breath, difficulty breathing, or wheezing. GASTROINTESTINAL: Denies abdominal pain or distention. Denies nausea, vomiting , or diarrhea. Denies blood in vomitus, stools, or per rectum. Denies black, tarry stools. Denies constipation. GENITOURINARY: Denies difficulty urinating, painful urination, burning, frequency, blood in urine, or discharge. FEMALE GENITOURINARY: Denies vaginal bleeding, heavy or abnormal periods, irregular periods. Denies vaginal discharge or odor. MUSCULOSKELETAL: Denies back or neck pain or stiffness. Denies joint pain or swelling. SKIN: Denies rash, lesions or sores. HEMATOLOGIC : Denies easy bruising or bleeding. LYMPHATIC: Denies swollen, enlarged glands. NEUROLOGICAL: Right facial droop and slurred speech left leg weakness PSYCHIATRIC: Denies anxiety or stress. Denies depression, suicidal ideation, or homicidal ideation. ALL OTHER SYSTEMS REVIEWED AND NEGATIVE. PHYSICAL EXAMINATION: GENERAL: Well-appearing, well-nourished and in no acute distress. HEAD: Atraumatic, normocephalic. EYES: Pupils equal round and reactive to light, extraocular movements intact, conjunctiva are normal. ENT: Nares patent, oropharynx clear without exudates. Moist mucous membranes. NECK: Normal range of motion, supple without lymphadenopathy LUNGS: Breath sounds clear to auscultation bilaterally and equal. No wheezes rales or rhonchi. HEART: Regular rate and rhythm without murmurs ABDOMEN: Soft, nontender, nondistended abdomen. No guarding, no rebound. No masses appreciated. Female : deferred Musculoskeletal: Normal range of motion, no pitting or edema. No cyanosis. NEUROLOGICAL: Cranial nerves grossly intact. Normal speech, normal gait. Normal sensory, motor exams PSYCH: Normal mood, normal affect. SKIN: Warm, Dry, normal turgor, no rashes or lesions noted. Dictation was performed using [employer] voice recognition software Physical Exam - Vital signs Vitals: Pulse Ox 99 06/28/17 18:10 Course - Re-evaluation Re-evalutation: 06/28/17 20:38 On my evaluation no deficits are noted, family notes symptoms have improved, they do note that triage nurse had stated left leg was weak. Patient will be admitted to the hospitalist service given that CT of the head was performed was negative and lab work otherwise was benign. Patient was given full dose aspirin she does not meet criteria for thrombolytics given that symptoms have resolved - Vital Signs Vital signs: Temp Pulse Resp BP Pulse Ox 97.6 F 72 20 123/74 96 06/28/17 18:12 06/28/17 18:22 06/28/17 18:22 06/28/17 18:22 06/28/17 18:22 - Laboratory Result Diagrams: 06/28/17 18:22 06/28/17 18:22 Laboratory results interpreted by me: 06/28/17 06/28/17 18:22 18:22 RBC 3.60 L Hgb 11.6 L Hct 34.3 L BUN 22 H Est GFR (Non-Af Amer) 57 L - Diagnostic Test Radiology reviewed: Image reviewed, Reports reviewed - No acute abnormality - EKG Interpretation by Me EKG shows normal: Sinus rhythm, Winters, Intervals, QRS Complexes Discharge - Discharge Clinical Impression: Slurred speech TIA (transient ischemic attack) Qualifiers: Transient cerebral ischemia type: unspecified Qualified Code(s): G45.9 - Transient cerebral ischemic attack, unspecified Condition: Stable Disposition: ADMITTED OBSERVATION Admitting Provider: Hospitalist Unit Admitted: [facility] ED NIH Stroke Scale - NIH Stroke Scale When completed:: Before Alteplase *: 1. NIH scale should be completed with appropriate accompanying assessment tools. *: 2. The NIH should reflect what the patient is capable of doing and should not be coached by the clinician. 1a. Level of Consciousness: 0=Alert;keenly responsive -: 1=Drowsy -: 2=Obtunded -: 3=Coma/unresponsive or reflex to noxious stimuli. 1a. Responses: 0 1b. Orientation Questions: a. What month is it? -: b. How old are you? -: 0=Answers both questions correctly. -: 1=Answers one question correctly or patient is intubated or has orotracheal trauma. -: 2=Answers neither question correctly. 1b. Responses: 0 1c. Response to commands: a. Open and close eyes? -: b. Mechanical Project Manager and release hand? -: Credit is given despite weakness. Demonstration of task is permitted. Substitute command if hands cannot be used. -: 0=Performs both tasks correctly -: 1=Performs one task correctly -: 2=Performs neither task correctly 1c. Responses: 0 2. Gaze: Establish eye contact and instruct patient to "Follow my finger" -: 0=Normal -: 1=Partial gaze palsy. Gaze is abnormal in one or both eyes, but where forced deviation or total gaze paresis is not present. -: 2=Forced deviation or total gaze paresis. 2. Responses: 0 3. Visual Pepper: Sees fingers in all four quadrants. -: 0=No visual loss. -: 1=Partial hemianopsia. -: 2=Complete hemianopsia. -: 3=Bilateral hemianopsia (including Cortical blindness) 3. Responses: 0 4. Facial Movement: Instruct patient to: -: a. Show me your teeth -: b. Raise your eyebrows -: c. Close your eyes -: d. Smile -: 0=Normal symmetrical movement -: 1=Minor paralysis (flattened nasolabial fold, asymmetry on smiling). -: 2=Partial paralysis (total or near total paralysis of lower face). -: 3=Complete paralysis of upper and lower face 4. Responses: 0 5. Motor functions (left arm): Alternate sides and extend each arm with palms down (90 degrees if sitting or 45 degrees for supine). -: 0=No drift;limb holds for full 10 seconds. -: 1=Drift; limb holds but drifts down before full 10 seconds, but does not hit bed. -: 2=Some effort against gravity; limb cannot get to or maintain position. -: 3=No effort against gravity; limb falls. -: 4=No movement. -: UN=Amputation, joint fusion, explain in comments. 5. Responses (left arm): 0 5. Motor Functions (right arm): Alternate sides and extend each arm with palms down (90 degrees if sitting or 45 degrees for supine). -: 0=No drift;limb holds for full 10 seconds. -: 1=Drift; limb holds but drifts down before full 10 seconds, but does not hit bed. -: 2=Some effort against gravity; limb cannot get to or maintain position. -: 3=No effort against gravity; limb falls. -: 4=No movement. -: UN=Amputation, joint fusion, explain in comments. 5. Responses (right arm): 0 6. Motor Functions (left leg): With patient lying supine, alternate sides and extend each leg (30 degrees always while supine). -: 0=No drift, leg holds position for full 5 seconds -: 1=Drift; leg falls before full 5 seconds but does not hit bed. -: 2=Some effort against gravity, leg falls to bed but some effort against gravity. -: 3=No effort against gravity, leg falls to bed immediately. -: 4=No movement. -: UN=Amputation, joint fusion; explain in comments. 6. Responses (left leg): 0 6. Motor Functions (right leg): With patient lying supine, alternate sides and extend each leg (30 degrees always while supine). -: 0=No drift, leg holds position for full 5 seconds -: 1=Drift; leg falls before full 5 seconds but does not hit bed. -: 2=Some effort against gravity, leg falls to bed but some effort against gravity. -: 3=No effort against gravity, leg falls to bed immediately. -: 4=No movement. -: UN=Amputation, joint fusion; explain in comments. 6. Responses (right leg): 0 7. Limb Ataxia: With eyes open instruct patient to: -: a. "Touch your finger to your nose". -: b. "Touch your heel to your vázquez" -: 0=Absent -: 1=Present in one limb. -: 2=Present in two limbs. -: UN=Amputation or joint fusion; explain in comments. 7. Responses: 0 8. Sensory: Test sensation using pinprick or noxious stimuli. Test as many body parts as possible. -: 0=Normal;no sensory loss -: 1=Mile to moderate sensory loss (patient feels pin prick but is less sharp on affected side). -: 2=Severe or total sensory loss. 8. Responses: 0 9. Best Language: Instruct patient to: -: a. "Describe what you see in this picture." -: b. "Name the items in this picture." -: c. "Read these sentences." -: 0=No aphasia, normal -: 1=Mild to moderate aphasia. -: 2=Severe aphasia -: 3=Mute, global aphasia, no usable speech or auditory comprehension. 9. Responses: 0 10. Articulation, Dysarthia: Instruct patient to: -: "Read these words" or "Repeat these words" -: 0=Normal -: 1=Mild to moderate; patient may slur some words but can be understood without difficulty. -: 2=Severe; patients speech so slurred as to be unintelligible in the absence of dysphasia. -: UN=Intubated or other physical barrier, explain in comments. 10. Responses: 0 11. Extinction or inattention: 0=No abnormality -: 1= Visual, tactile, auditory, spatial, or personal inattention or extinction to bilateral simulation in one or the sensory modalities. -: 2=Profound marcellus-inattention or marcellus-inattention to more than one modality; does not recognize own hand. 11. Responses: 0 Total Score: 0
[2017-06-28 19:22] LABS: CREATINE KINASE MB 1.23 ng/mL (<4.55)
[2017-06-28 19:28] LABS: TROPONIN I < 0.012 ng/mL
[2017-06-28] MEDS ORDERED: ASPIRIN 325 MG TABLET PO ONE (19:38)
[2017-06-28] MEDS ORDERED: DEXTROSE 40% GEL 15 GM TUBE PO PRN ×2 (21:13)
[2017-06-28] MEDS ORDERED: ACETAMINOPHEN 325 MG TABLET PO PRN (21:13)
[2017-06-28] MEDS ORDERED: DEXTROSE 50%-WATER 25 GM/50 ML DISP.SYRIN IV PRN ×2 (21:13)
[2017-06-28] MEDS ORDERED: 1/2 NORMAL SALINE 1,000 ML IV PRN (21:13)
[2017-06-28] MEDS ORDERED: ONDANSETRON HCL INJ/PF 4 MG/2 ML SDV IV PRN (21:13)
[2017-06-28] MEDS ORDERED: GLUCAGON,HUMAN RECOMB 1 MG INJ SUBCUT PRN (21:13)
[2017-06-28] MEDS ORDERED: ATORVASTATIN CALCIUM 40 MG TABLET PO SCH (22:00)
--- NOTE | 2017-06-28 22:05 | EKG REPORT ---
SEVERITY:- NORMAL ECG - SINUS RHYTHM : Confirmed by: Arnaldo Quiroz 28-Jun-2017 22:04:41
[2017-06-29] MEDS: HEPARIN SOD (PORCINE) 5,000 UNIT/ML 1 ML SYRINGE SUBCUT SCH ×4 (01:29→22:28)
--- NOTE | 2017-06-29 04:01 | PDOC H&P ---
History of Present Illness Admission Date/PCP: 06/28/17 19:56 MIKE PARNELL MD Patient complains of: Unsteady gait and falls 2 over the last couple of days. Questionable slurred speech per son around 2 PM. History of Present Illness: FER UP is a 81 year old female with history of dementia (possibly vascular), TIA's and unsteady gait (uses a quad cane) admitted with above- mentioned complaints. I was not able to get an accurate history from the patient given her dementia so most of the history was obtained from her son at bedside. According to her son, the patient has been having frequent falls and she forgets to use her cane sometimes. She has 2 walker which she doesn't use and she lives by herself. She apparently fell yesterday trying to go up the front steps of her house after she went to check her mailbox. She fell forward and was unable to get up by herself. She fell again today as she was trying to stand up from a sitting position. She may have lost her balance and fell forward. She crawled and called a family member who had to get her up. The patient had a left wrist fracture post mechanical fall in 04/2017 requiring surgery per her son. And according to her son, he called her around 2 PM and he was not able to understand what she was saying but he did not really describe it as garbled speech. He thought that she may have been having another TIA so he brought her to the hospital for further management and treatment. The patient has dizziness /vertigo for which she takes meclizine but there was no report of any focal weakness or numbness or any syncopal episode. According to the ED note, her son also reported that she might have had a right facial droop. She is already on Aspirin 325 mg and Plavix 75 mg daily. In the ED, her temperature was 97.6, heart rate 74, respiratory rate 19, blood pressure 123/74 with oxygen saturation of 96% on room air. Her initial troponin was negative. A chest x-ray was done which was unremarkable. She also had a CAT scan of the head which did not show any acute findings. She received aspirin 325 mg 1. Past Medical History Medical History: Other - According to the patient/son and per previous records. Cardiac Medical History: Reports: Hyperlipidema Denies: Atrial Fibrillation, Congestive Heart Failure, Coronary Artery Disease, Myocardial Infarction, Hypertension, Peripheral Vascular Disease, Heart Murmur Pulmonary Medical History: Denies: Asthma, Bronchitis, Chronic Obstructive Pulmonary Disease (COPD), Pneumonia, Tuberculosis Neurological Medical History: Denies: Seizures Endocrine Medical History: Denies: Hyperthyroidism, Hypothyroidism GI Medical History: Reports: Gastroesophageal Reflux Disease Denies: Cirrhosis, Crohn's Disease, Hepatitis, Hiatal Hernia Musculoskeltal Medical History: Reports: Arthritis Psychiatric Medical History: Reports: Depression Denies: Bipolar Disorder, Dementia, Post Traumatic Stress Disorder Hematology: Denies: Anemia Past Surgical History Past Surgical History: Reports: Appendectomy - 1958, Cholecystectomy - 1990, Hysterectomy, Orthopedic Surgery - lower back surgery; left wrist surgery in 2017 post fall., Tubal Ligation Denies: Section, Colostomy, Coronary Artery Bypass Graft, Gastric Bypass Surgery, Herniorrhaphy, Mastectomy, Pacemaker, Tonsillectomy Social History Smoking Status: Never Smoker Frequency of Alcohol Use: None Hx Recreational Drug Use: No Drugs: None Hx Prescription Drug Abuse: No - Advance Directive Resuscitation Status: Full Code Family History Parental Family History Reviewed: Yes - no known cardiac disease in family per son. Children Family History Reviewed: No Sibling(s) Family History Reviewed.: Yes Medication/Allergy Home Medications: Alprazolam [Xanax 0.5 mg Tablet] 0.5 mg PO Q6HP PRN 06/28/17 Ascorbic Acid [Vitamin C 500 mg Tablet] 500 mg PO BID 06/28/17 Aspirin [Aspirin 325 mg Tablet] 325 mg PO MOWEFR@1000 06/28/17 Calcium Carbonate/Vitamin D3 [Calcium 600 + Vit D Tablet] 1 tab PO BID 06/28/17 Cetirizine HCl [Zyrtec 10 mg Tablet] 10 mg PO QHS 06/28/17 Clopidogrel Bisulfate [Clopidogrel] 75 mg PO DAILY 06/28/17 Cyanocobalamin (Vitamin B-12) [Vitamin B-12 1000 mcg Tablet] 1,000 mcg PO QAM Ferrous Sulfate 140 mg PO BID 06/28/17 Fluticasone Propionate [Flonase Nasal [place] 50 Mcg/[place] 16 gm] 2 spray NASL DAILY 06/28/17 Meclizine HCl [Antivert 25 mg Tablet] 25 mg PO QIDP PRN 06/28/17 Memantine HCl [Namenda 10 mg Tablet] 10 mg PO BID 06/28/17 Omeprazole 40 mg PO DAILY 06/28/17 Promethazine HCl [Phenergan 25 mg Tablet] 25 mg PO TIDP PRN 06/28/17 Ranitidine HCl [Zantac 150 mg Tablet] 150 mg PO BID 06/28/17 Sertraline HCl [Zoloft 50 mg Tablet] 150 mg PO DAILY 06/28/17 Simvastatin [Zocor 40 mg Tablet] 40 mg PO QHS 06/28/17 Valsartan [Diovan 80 mg Tablet] 80 mg PO QPM 06/28/17 Allergies/Adverse Reactions: Sulfa (Sulfonamide Antibiotics) Allergy (Unknown, Verified 06/28/17 17:49) Review of Systems ROS unobtainable: Other - Unablet to obtain an accurate review of systems given patient's dementia. Physical Exam Vital Signs: Temp Pulse Resp BP Pulse Ox 98.2 F 79 17 137/72 H 96 06/28/17 21:02 06/28/17 21:00 06/28/17 21:02 06/28/17 21:02 06/28/17 21:02 General appearance: PRESENT: no acute distress, well-developed, well-nourished Head exam: PRESENT: atraumatic, normocephalic Eye exam: PRESENT: conjunctiva pink, PERRLA. ABSENT: scleral icterus Mouth exam: PRESENT: moist, neck supple Neck exam: PRESENT: full ROM. ABSENT: JVD Respiratory exam: PRESENT: clear to auscultation arlin. ABSENT: rales, rhonchi, wheezes Cardiovascular exam: PRESENT: RRR, +S1, +S2 Pulses: PRESENT: normal dorsalis pedis pul GI/Abdominal exam: PRESENT: normal bowel sounds, soft. ABSENT: distended, rebound, tenderness Rectal exam: PRESENT: deferred Extremities exam: ABSENT: pedal edema Neurological exam: PRESENT: alert, awake, oriented to person. ABSENT: CN II- XII grossly intact - limited neurological exam since dementia. no babinski or clonus. Gait was not assessed., motor sensory deficit Skin exam: PRESENT: dry, warm. ABSENT: erythema, rash Results Laboratory Results: CBC: WBC 5.1, hemoglobin 11.6, hematocrit 34.3, MCV 95, RDW 13.9, platelets 206. PT/INR 30.1/0.93. CMP: Sodium 141.2, potassium 4.0, chloride 105, bicarb 26, anion gap 10, BUN 22 , creatinine 0.95, glucose 89, liver enzymes within normal limits. Troponin 1 negative. EKG Comments: Lead EKG, sinus rhythm, ventricular rate 75, [place] 0, no acute changes. Impressions: Chest X-Ray 06/28/17 00:00 IMPRESSION: No significant interval change. No acute findings. Other findings as noted above. Head CT 06/28/17 00:00 IMPRESSION: MICROVASCULAR ISCHEMIA AND GENERALIZED ATROPHY. NO ACUTE IMAGING FINDINGS IN THE BRAIN EVIDENCE OF ACUTE STROKE: NO. Assessment & Plan - Diagnosis (1) TIA (transient ischemic attack) Qualifiers: Transient cerebral ischemia type: unspecified Qualified Code(s): G45.9 - Transient cerebral ischemic attack, unspecified Is this a current diagnosis for this admission?: Yes Plan: Possible. According to the ED note, the patient came within the window for TPA but her NIHSS score was 0. CAT scan head did not show any acute findings. Will obtain a stroke workup including MRI head, MRA head and neck, echocardiogram, fasting lipid profile and HbA1c. Will continue aspirin and Plavix as previously in addition to Lipitor. (2) Unsteady gait Is this a current diagnosis for this admission?: Yes Plan: Frequent falls. Apparently, the patient has history of dizziness/vertigo for which she takes meclizine. Will follow-up stroke workup and check orthostasis , UA, B12 and folate. Her CPK is 107 (she is on statins at home). Her list of medications may need to be simplified once reviewed by pharmacy in case her symptoms are due to medications' side effects. We will consult PT. (3) Essential (primary) hypertension Is this a current diagnosis for this admission?: No Plan: Will continue to monitor for now and resume her BP medications once clarified by pharmacy. (4) History of dementia Is this a current diagnosis for this admission?: No Plan: she is on Namenda as outpatient. - Time Time Spent: 50 to 70 Minutes Anticipated discharge: Home
[2017-06-29 05:12] LABS: HEMATOCRIT 33.6 % (36.0-47.0); HEMOGLOBIN 11.3 g/dL (12.0-15.5); MEAN CORPUSCULAR HGB CONC 33.5 g/dL (32.0-36.0); MEAN CORPUSCULAR VOLUME 95 fl (80-97); PLATELET COUNT 181 10^3/uL (150-450); RED BLOOD COUNT 3.52 10^6/uL (3.72-5.28); RED CELL DISTRIBUTION WIDTH 14.1 % (11.5-14.0); WHITE BLOOD COUNT 4.9 10^3/uL (4.0-10.5)
[2017-06-29 05:28] LABS: CHOLESTEROL 159.16 mg/dL (0-200); TRIGLYCERIDES 116 mg/dL (<150)
[2017-06-29 05:39] LABS: DIRECT LDL 92 mg/dL (<100)
[2017-06-29 06:34] LABS: ANION GAP 10 (5-19); BLOOD UREA NITROGEN 21 mg/dL (7-20); CALCIUM 9.4 mg/dL (8.4-10.2); CARBON DIOXIDE 25 mmol/L (22-30); CHLORIDE 107 mmol/L (98-107); GLUCOSE 96 mg/dL (75-110); POTASSIUM 3.9 mmol/L (3.6-5.0)
--- NOTE | 2017-06-29 07:37 | RADIOLOGY REPORT (SQ) ---
EXAM DESCRIPTION: 1. MRA of the head without contrast. 2. MRA of the neck without contrast CLINICAL HISTORY: 81 years Female, TIA COMPARISON: None. TECHNIQUE: 1. MRA of the head without contrast was gained using 3-D pfgz-tf-vweiga imaging. 3-D/MIP reformatted images available. 2. MRA of the neck obtained without contrast obtained using 2-D lajc-co-fhsynn imaging. 3-D/MIP reformatted images available. FINDINGS: MRA head: In the anterior circulation the intracranial internal carotid arteries have normal course and caliber. The intracranial internal carotid arteries bifurcate into widely patent A1 and M1 segments of the anterior and middle cerebral arteries. The anterior communicating artery is patent. The posterior communicating arteries are patent. No stenosis, aneurysm, or abnormal arteriovenous shunting in the anterior circulation. In the posterior circulation the intracranial vertebral arteries combined to form a widely patent basilar artery. Basilar artery bifurcates into widely patent posterior cerebral arteries. Superior cerebellar arteries are patent. No abnormal arteriovenous communication, aneurysm, or stenosis identified in the posterior circulation. MRA neck: Right carotid: The right common carotid artery is widely patent. The common carotid artery bifurcates into patent internal and external carotid arteries. 0% stenosis of the right internal carotid artery by NASCET criteria. No evidence of dissection or aneurysm. Left carotid: The left common carotid artery is widely patent. The common carotid artery bifurcates into patent internal and external carotid arteries. 0% stenosis of the left internal carotid artery by NASCET criteria. No evidence of dissection or aneurysm. Vertebral arteries: The vertebral arteries are widely patent without evidence of obstruction or dissection. No evidence of stenosis. Slight dominance of the right vertebral artery. IMPRESSION: 1. No abnormality identified in the intracranial circulation. 2. No evidence of cervical carotid arterial stenosis.
--- NOTE | 2017-06-29 07:37 | RADIOLOGY REPORT (SQ) ---
EXAM DESCRIPTION: 1. MRA of the head without contrast. 2. MRA of the neck without contrast CLINICAL HISTORY: 81 years Female, TIA COMPARISON: None. TECHNIQUE: 1. MRA of the head without contrast was gained using 3-D yswf-mc-xocvgj imaging. 3-D/MIP reformatted images available. 2. MRA of the neck obtained without contrast obtained using 2-D ecwz-rq-rnkdzz imaging. 3-D/MIP reformatted images available. FINDINGS: MRA head: In the anterior circulation the intracranial internal carotid arteries have normal course and caliber. The intracranial internal carotid arteries bifurcate into widely patent A1 and M1 segments of the anterior and middle cerebral arteries. The anterior communicating artery is patent. The posterior communicating arteries are patent. No stenosis, aneurysm, or abnormal arteriovenous shunting in the anterior circulation. In the posterior circulation the intracranial vertebral arteries combined to form a widely patent basilar artery. Basilar artery bifurcates into widely patent posterior cerebral arteries. Superior cerebellar arteries are patent. No abnormal arteriovenous communication, aneurysm, or stenosis identified in the posterior circulation. MRA neck: Right carotid: The right common carotid artery is widely patent. The common carotid artery bifurcates into patent internal and external carotid arteries. 0% stenosis of the right internal carotid artery by NASCET criteria. No evidence of dissection or aneurysm. Left carotid: The left common carotid artery is widely patent. The common carotid artery bifurcates into patent internal and external carotid arteries. 0% stenosis of the left internal carotid artery by NASCET criteria. No evidence of dissection or aneurysm. Vertebral arteries: The vertebral arteries are widely patent without evidence of obstruction or dissection. No evidence of stenosis. Slight dominance of the right vertebral artery. IMPRESSION: 1. No abnormality identified in the intracranial circulation. 2. No evidence of cervical carotid arterial stenosis.
--- NOTE | 2017-06-29 08:22 | RADIOLOGY REPORT (SQ) ---
EXAM DESCRIPTION: MRI HEAD WITHOUT COMPLETED DATE/TIME: 06/28/2017 11:57 pm REASON FOR STUDY: TIA COMPARISON: CT dated 06/28/2017. TECHNIQUE: Multiplanar imaging includes non-contrasted T1, T2, FLAIR, and diffusion with ADC map seq uences. Images stored on PACS. LIMITATIONS: None. FINDINGS: ANATOMY: No anomalies. Normal vascular flow voids. Pituitary fossa normal. CSF SPACES: Atrophy induced prominence of ventricles and CSF spaces. CEREBRUM: High signal intensity lesions scattered throughout the white matter on FLAIR imaging with d istribution suggesting micro-vascular ischemic changes. No evidence of hemorrhage, mass, or extraaxi al fluid collection. POSTERIOR FOSSA: No signal alteration. No hemorrhage. No edema, masses or mass effect. Internal lou tory canals, cerebello-pontine angles, mastoids normal. DIFFUSION IMAGING: Negative for acute or sub-acute infarction. ORBITS: No masses. Globes normal. PARANASAL SINUSES: No fluid levels. Mucosa normal. OTHER: No other significant finding. IMPRESSION: ATROPHY AND CHRONIC MICRO-VASCULAR ISCHEMIC CHANGES. OTHERWISE NORMAL MRI OF THE BRAIN W ITHOUT INTRAVENOUS GADOLINIUM CONTRAST. EVIDENCE OF ACUTE STROKE: NO. TECHNICAL DOCUMENTATION: JOB ID: [id number] [employer]- All Rights Reserved Reading location - IP/workstation name: [email or web address]
[2017-06-29] MEDS: ASPIRIN 325 MG TABLET, ENT COATED PO SCH (10:10)
[2017-06-29] MEDS: CLOPIDOGREL BISULFATE 75 MG TABLET PO SCH (10:10)
[2017-06-29] MEDS ORDERED: MECLIZINE HCL 25 MG TABLET PO PRN (11:33)
[2017-06-29] MEDS ORDERED: PROMETHAZINE HCL 25 MG TABLET PO PRN (11:33)
[2017-06-29] MEDS ORDERED: ALPRAZOLAM 0.5 MG TABLET PO PRN (11:33)
--- NOTE | 2017-06-29 11:47 | PDOC PROGRESS REPORT ---
Subjective Progress Note for:: 06/29/17 Subjective:: Patient speech is a little bit stuttering and her son notes that this is her baseline. She is ultimately comprehensible. She feels normal today. She reports falling at home and she thinks this is secondary to leg weakness. She is not having any chest pain or difficulty breathing now. No fevers or chills. She is having some left wrist pain and this is been going on since her surgery for a left wrist fracture repair. I learned from several family members today that the patient does not fact live alone with her son and other family members nearby. Her son who is at bedside states that the dementia is progressive. Patient tells me today that she would like to stay at home as long as is possible. Family has recently gotten her life alert. Patient agrees that it is dangerous for her to live at home at this time and she will think about whether or not this is an acceptable situation and will discuss this with her family. Reason For Visit: TIA Physical Exam Vital Signs: Temp Pulse Resp BP Pulse Ox 98.1 F 89 14 135/67 H 95 06/29/17 07:24 06/29/17 08:00 06/29/17 08:00 06/29/17 08:00 06/29/17 09:00 Intake & Output 06/28/17 06/29/17 06/30/17 06:59 06:59 06:59 Intake Total 392 Balance 392 Weight 80.2 kg General appearance: PRESENT: no acute distress, cooperative, well-developed, well-nourished Head exam: PRESENT: atraumatic, normocephalic Eye exam: PRESENT: EOMI. ABSENT: periorbital swelling Ear exam: PRESENT: normal external ear exam. ABSENT: drainage Mouth exam: PRESENT: tongue midline Neck exam: ABSENT: JVD Respiratory exam: PRESENT: clear to auscultation arlin, unlabored. ABSENT: prolonged expiratory phas, rales, rhonchi, tachypnea, wheezes Cardiovascular exam: PRESENT: RRR. ABSENT: systolic murmur Pulses: PRESENT: normal carotid pulses GI/Abdominal exam: PRESENT: normal bowel sounds, soft. ABSENT: distended, tenderness Extremities exam: ABSENT: pedal edema Musculoskeletal exam: PRESENT: normal inspection Neurological exam: PRESENT: CN II-XII grossly intact - Stuttering speech though comprehensible Psychiatric exam: PRESENT: appropriate affect. ABSENT: agitated, anxious Skin exam: PRESENT: dry, intact, normal color, warm. ABSENT: mottled, rash, skin tears Results Laboratory Results: 06/29/17 04:16 06/29/17 04:16 06/29/17 06/29/17 06/29/17 04:16 04:16 04:16 WBC 4.9 RBC 3.52 L Hgb 11.3 L Hct 33.6 L MCV 95 MCH 32.0 MCHC 33.5 RDW 14.1 H Plt Count 181 Sodium 142.0 Potassium 3.9 Chloride 107 Carbon Dioxide 25 Anion Gap 10 BUN 21 H Creatinine 0.98 Est GFR ( Amer) > 60 Est GFR (Non-Af Amer) 55 L Glucose 96 Calcium 9.4 Triglycerides 116 Cholesterol 159.16 LDL Cholesterol Direct 92 VLDL Cholesterol 23.0 HDL Cholesterol 41 Vitamin B12 > 1000.0 H Folate 18.40 Impressions: Chest X-Ray 06/28/17 00:00 IMPRESSION: No significant interval change. No acute findings. Other findings as noted above. Head CT 06/28/17 00:00 IMPRESSION: MICROVASCULAR ISCHEMIA AND GENERALIZED ATROPHY. NO ACUTE IMAGING FINDINGS IN THE BRAIN EVIDENCE OF ACUTE STROKE: NO. Head MRI 06/28/17 21:16 IMPRESSION: ATROPHY AND CHRONIC MICRO-VASCULAR ISCHEMIC CHANGES. OTHERWISE NORMAL MRI OF THE BRAIN WITHOUT INTRAVENOUS GADOLINIUM CONTRAST. EVIDENCE OF ACUTE STROKE: NO. Brain MRI with MRA 06/28/17 21:17 IMPRESSION: 1. No abnormality identified in the intracranial circulation. 2. No evidence of cervical carotid arterial stenosis. Neck MRA 06/28/17 21:17 IMPRESSION: 1. No abnormality identified in the intracranial circulation. 2. No evidence of cervical carotid arterial stenosis. Assessment & Plan - Diagnosis (1) TIA (transient ischemic attack) Qualifiers: Transient cerebral ischemia type: unspecified Qualified Code(s): G45.9 - Transient cerebral ischemic attack, unspecified Is this a current diagnosis for this admission?: Yes Plan: Patient was admitted with TIA type symptoms. Her MRI MRA of the brain and MRA of the neck do not show new acute lesions. He does have evidence of chronic ischemic changes in her brain. Patient is already on Plavix and aspirin. We will continue these. She has a physical therapy and Occupational Therapy consult ordered. She has passed her speech evaluation. DVT prophylaxis has been started. Echocardiogram is pending. (2) HTN (hypertension) Qualifiers: Hypertension type: essential hypertension Qualified Code(s): I10 - Essential (primary) hypertension Is this a current diagnosis for this admission?: Yes Plan: Losartan 80 mg is a home medication. Is currently on hold. She is normotensive. Will restart when indicated. (3) Left wrist fracture Is this a current diagnosis for this admission?: Yes Plan: Patient underwent left wrist fracture repair in April. She is still in a splint. She continues to have pain though it is getting better. Patient has occupational therapy ordered due to this so that we can hopefully optimize her safety in the home. (4) Unsteady gait Is this a current diagnosis for this admission?: Yes Plan: Patient has been falling at home a lot. Whether this is secondary to TIAs or weakness or other we do not know though it is probably a combination of all of these things. He has developing dementia, probably vascular type. PT and OT consults have been ordered. Patient's family has ordered a life alert at home. The patient wants to stay in her home as long as she can safely. Home safety eval by home physical therapy on discharge is warranted. (5) Dementia Qualifiers: Dementia type: vascular dementia Dementia behavioral disturbance: without behavioral disturbance Qualified Code(s): F01.50 - Vascular dementia without behavioral disturbance Is this a current diagnosis for this admission?: Yes Plan: Per family this is progressing. I started her dementia medications. Home safety eval is warranted on discharge. She would benefit from services in the home if possible. - Time Time Spent with patient: 25-34 minutes Medications reviewed and adjusted accordingly: Yes - Inpatient Certification Based on my medical assessment, after consideration of the patient's comorbidities, presenting symptoms, or acuity I expect that the services needed warrant INPATIENT care.: No I certify that my determination is in accordance with my understanding of Medicare's requirements for reasonable and necessary INPATIENT services [42 CFR 412.3e].: No Post Hospital Care: D/C [facility] Documentation - please eval to see if pt can recieve services in the home, long term for assitance with meds. [facility] home PT and OT.
[2017-06-29 12:27] LABS: APPEARANCE,URINE CLEAR; BILIRUBIN,URINE NEGATIVE (NEGATIVE); COLOR,URINE STRAW; GLUCOSE, URINE NEGATIVE (NEGATIVE); KETONES,URINE NEGATIVE (NEGATIVE); LEUKOCYTE ESTERASE,URINE SMALL (NEGATIVE); NITRITE,URINE NEGATIVE (NEGATIVE); PROTEIN,URINE NEGATIVE (NEGATIVE); URINE SPECIFIC GRAVITY 1.003; UROBILINOGEN,URINE NEGATIVE mg/dL (<2.0)
[2017-06-29 13:56] LABS: CREATINE KINASE MB 0.81 ng/mL (<4.55)
[2017-06-29 13:57] LABS: TROPONIN I < 0.012 ng/mL
--- NOTE | 2017-06-29 17:47 | XCELERA REPORT ---
[address] [address] Transthoracic Echocardiogram Report Name: FER UP Age: 81 yrs Gender: Female : 1935 Patient Status: Inpatient Patient Location: [address] [place] [address] Study Date: 06/29/2017 02:43 PM Height: 63 in Weight: 176 lb BSA: 1.8 m2 Procedure: A complete two-dimensional transthoracic echocardiogram was performed (2D, M-mode, spectral and color flow Doppler). The study was technically adequate with some images being suboptimal in quality. Reason For Study: TIA Ordering Physician: KIM JETER Performed By: Lorraine Perea Interpretation Summary The left ventricular ejection fraction is normal. There is normal left ventricular wall thickness. The left ventricle is grossly normal size. Doppler measurements suggest impaired left ventricular relaxation, which is associated with grade I/IV or mild diastolic dysfunction Wall motion cannot be accurately commented on, but no definite regional wall motion abnormalities noted. Borderline right ventricular enlargement. The right ventricular systolic function is normal. The right atrium is normal in size The left atrial size is normal. There is a trace amount of mitral regurgitation There is no mitral valve stenosis. There is no aortic valve stenosis No aortic regurgitation is present. There is no tricuspid stenosis. No tricuspid regurgitation. The aortic root is not well visualized but is probably normal size. The inferior vena cava appeared normal and decreased > 50% with respiration (RAP 5-10 mmHg) There is no pericardial effusion. No definite cardiac source of CVA/TIA noted on this particular trans- thoracic study. Consider MARILYN if clinically indicated. May consider mobile cardiac telemetry monitoring (MCT) for ruling out transient AFIB. MMode/2D Measurements & Calculations RVDd: 2.6 cm LVIDd: 4.3 cm FS: 34.5 % Ao root diam: 3.0 cm IVSd: 0.75 cm LVIDs: 2.8 cm EDV(Teich): 84.6 ml LVPWd: 0.81 cm ESV(Teich): 30.5 ml Ao root area: 7.3 cm2 EF(Teich): 63.9 % LA dimension: 3.5 cm Doppler Measurements & Calculations MV E max mic: MV P1/2t max mic: Ao V2 max: LV V1 max P.7 cm/sec 98.7 cm/sec 130.3 cm/sec 5.6 mmHg MV A max mic: MV P1/2t: 86.5 msec Ao max PG: LV V1 max: 100.7 cm/sec 6.8 mmHg 118.0 cm/sec MV E/A: 0.99 MVA(P1/2t): 2.5 cm2 MV dec slope: 334.4 cm/sec2 PA V2 max: 95.8 cm/sec PA max P.7 mmHg Left Ventricle The left ventricle is grossly normal size. There is normal left ventricular wall thickness. The left ventricular ejection fraction is normal. Doppler measurements suggest impaired left ventricular relaxation, which is associated with grade I/IV or mild diastolic dysfunction. Wall motion cannot be accurately commented on, but no definite regional wall motion abnormalities noted. Right Ventricle Borderline right ventricular enlargement. There is normal right ventricular wall thickness. The right ventricular systolic function is normal. Atria The right atrium is normal in size. The left atrial size is normal. Interarterial septum not well visualized and not well dopplered. Cannot comment on ASD/PFO presence. Mitral Valve The mitral valve is not well visualized. There is no mitral valve stenosis. There is a trace amount of mitral regurgitation. Aortic Valve The aortic valve is grossly normal. There is no aortic valve stenosis. No aortic regurgitation is present. Tricuspid Valve The tricuspid valve is not well visualized, but is grossly normal. There is no tricuspid stenosis. No tricuspid regurgitation. Pulmonic Valve The pulmonic valve is not well seen, but is grossly normal. Great Vessels The aortic root is not well visualized but is probably normal size. The inferior vena cava appeared normal and decreased > 50% with respiration (RAP 5-10 mmHg). Effusions There is no pericardial effusion. Incidental Findings No definite cardiac source of CVA/TIA noted on this particular trans- thoracic study. Consider MARILYN if clinically indicated. May consider mobile cardiac telemetry monitoring (MCT) for ruling out transient AFIB. : KIM JETER > Arnaldo Quiroz
[2017-06-29] MEDS: FAMOTIDINE 20 MG TABLET PO SCH (19:53)
[2017-06-29] MEDS: CALCIUM CARBONATE 250 MG/VITAMIN D3 125 UNIT TABLET PO SCH (19:53)
[2017-06-29] MEDS ORDERED: (PENDING PHARMACY ID) (Ferrous Sulfate [Ferrous Sulfate] 140 MG) PO SCH (20:00)
[2017-06-29] MEDS ORDERED: SIMVASTATIN 40 MG TABLET PO SCH (20:00)
[2017-06-29] MEDS ORDERED: (PENDING PHARMACY ID) (Ranitidine Hcl [Zantac 150 Mg Tablet] 150 MG) PO SCH (20:00)
[2017-06-29] MEDS ORDERED: (PENDING PHARMACY ID) (Calcium Carbonate/Vitamin D3 [Calcium 600 + Vit D Tablet] 1 TAB) PO SCH (20:00)
[2017-06-29] MEDS ORDERED: CETIRIZINE 10 MG TABLET PO SCH (22:00)
[2017-06-29] MEDS: FERROUS SULFATE 325 MG TABLET PO SCH (22:28)
[2017-06-29] MEDS: MEMANTINE HCL 10 MG TABLET PO SCH (22:29)
[2017-06-29] MEDS: ASCORBIC ACID 500 MG TABLET PO SCH (22:29)
[2017-06-29] MEDS: CIPROFLOXACIN HCL 500 MG TABLET PO SCH (22:29)
[2017-06-30] MEDS: HEPARIN SOD (PORCINE) 5,000 UNIT/ML 1 ML SYRINGE SUBCUT SCH (05:22)
[2017-06-30] MEDS ORDERED: LANSOPRAZOLE 30 MG TAB.RAP.DR PO SCH (06:00)
[2017-06-30 08:59] VITALS: BP 133/62
[2017-06-30] MEDS ORDERED: SERTRALINE HCL 50 MG TABLET PO SCH (10:00)
[2017-06-30] MEDS ORDERED: FLUTICASONE NASAL SPRAY 50 MCG/SPRY 120 SPRAY/16 GM NASL SCH (10:00)
[2017-06-30] MEDS: ASCORBIC ACID 500 MG TABLET PO SCH (10:16)
[2017-06-30] MEDS: FAMOTIDINE 20 MG TABLET PO SCH (10:17)
[2017-06-30] MEDS: FERROUS SULFATE 325 MG TABLET PO SCH (10:17)
[2017-06-30] MEDS: ASPIRIN 325 MG TABLET, ENT COATED PO SCH (10:17)
[2017-06-30] MEDS: MEMANTINE HCL 10 MG TABLET PO SCH (10:18)
[2017-06-30] MEDS: CIPROFLOXACIN HCL 500 MG TABLET PO SCH (10:18)
[2017-06-30] MEDS: CLOPIDOGREL BISULFATE 75 MG TABLET PO SCH (10:18)
[2017-06-30] MEDS: CALCIUM CARBONATE 250 MG/VITAMIN D3 125 UNIT TABLET PO SCH (10:21)
--- NOTE | 2017-06-30 17:18 | PDOC DISCHARGE SUMMARY ---
General - Admit/Disc Date/PCP Admission Date/Primary Care Provider: 06/28/17 19:56 MIKE PARNELL MD Discharge Date: 06/30/17 - Discharge Diagnosis (1) TIA (transient ischemic attack) Is this a current diagnosis for this admission?: Yes Summary: She has chronic microvascular ischemic changes. She may have had another TIA. She will continue on her aspirin and Plavix, along with her statin and antihypertensives. Performed a significant amount of education for the patient and her 2 sons regarding this problem. (2) HTN (hypertension) Is this a current diagnosis for this admission?: Yes Summary: She was started on her home medication for discharge. (3) Left wrist fracture Is this a current diagnosis for this admission?: Yes Summary: This is secondary to a recent fall, she is receiving outpatient occupational therapy (4) Unsteady gait Is this a current diagnosis for this admission?: Yes Summary: Probably secondary to her microvascular ischemic disease and her vascular dementia along with her age. Home physical therapy is being ordered. The patient and her family would like to try to keep her at home as long as possible. They understand the risks. Family lives nearby. They have recently ordered a life alert. They try to stay with her as much as possible. (5) Dementia Is this a current diagnosis for this admission?: Yes Summary: Vascular dementia likely. To follow-up with her primary care doctor. Family is well aware of her diagnosis and are doing with a can to keep her as safe as possible. (6) Urinary tract infection Is this a current diagnosis for this admission?: Yes Summary: Patient had burning on urination. UA consistent with UTI. Urine culture pending. She is on Cipro 500 mg p.o. twice daily for 5 days. - Additional Information Resuscitation Status: Full Code Discharge Diet: Cardiac Discharge Activity: Activity As Tolerated, Balance Activity w/Rest, Other Prescriptions: Ciprofloxacin HCl [Cipro 500 mg Tablet] 500 mg PO Q12 4 Days #8 tab Home Medications: Alprazolam [Xanax 0.5 mg Tablet] 0.5 mg PO Q6HP PRN 06/28/17 Ascorbic Acid [Vitamin C 500 mg Tablet] 500 mg PO 1000,199906/28/17 Aspirin [Aspirin 325 mg Tablet] 325 mg PO MOWEFR@1000 06/28/17 Calcium Carbonate/Vitamin D3 [Calcium 600 + Vit D Tablet] 1 tab PO 1000,12/08 Cetirizine HCl [Zyrtec 10 mg Tablet] 10 mg PO QHS 06/28/17 Clopidogrel Bisulfate [Clopidogrel] 75 mg PO DAILY 06/28/17 Cyanocobalamin (Vitamin B-12) [Vitamin B-12 1000 mcg Tablet] 1,000 mcg PO QAM Ferrous Sulfate 140 mg PO 999,199906/28/17 Fluticasone Propionate [Flonase Nasal [place] 50 Mcg/[place] 16 gm] 2 spray NASL DAILY 06/28/17 Meclizine HCl [Antivert 25 mg Tablet] 25 mg PO QIDP PRN 06/28/17 Memantine HCl [Namenda 10 mg Tablet] 10 mg PO 999,199906/28/17 Omeprazole 40 mg PO 0606/28/17 Promethazine HCl [Phenergan 25 mg Tablet] 25 mg PO TIDP PRN 06/28/17 Ranitidine HCl [Zantac 150 mg Tablet] 150 mg PO 999,199906/28/17 Sertraline HCl [Zoloft 50 mg Tablet] 150 mg PO DAILY 06/28/17 Simvastatin [Zocor 40 mg Tablet] 40 mg PO 199906/28/17 Valsartan [Diovan 80 mg Tablet] 80 mg PO 199906/28/17 Ciprofloxacin HCl [Cipro 500 mg Tablet] 500 mg PO Q12 4 Days #8 tab 06/30/17 History of Present Illness Patient complains of: Unsteady gait, falls, dysuria History of Present Illness: FER UP is a 81 year old female Hospital Course Hospital Course: FER UP is a 81 year old female with history of dementia (possibly vascular), TIA's and unsteady gait (uses a quad cane) admitted with above- mentioned complaints. I was not able to get an accurate history from the patient given her dementia so most of the history was obtained from her son at bedside. According to her son, the patient has been having frequent falls and she forgets to use her cane sometimes. She has 2 walker which she doesn't use and she lives by herself. She apparently fell yesterday trying to go up the front steps of her house after she went to check her mailbox. She fell forward and was unable to get up by herself. She fell again today as she was trying to stand up from a sitting position. She may have lost her balance and fell forward. She crawled and called a family member who had to get her up. The patient had a left wrist fracture post mechanical fall in 04/2017 requiring surgery per her son. And according to her son, he called her around 2 PM and he was not able to understand what she was saying but he did not really describe it as garbled speech. He thought that she may have been having another TIA so he brought her to the hospital for further management and treatment. The patient has dizziness /vertigo for which she takes meclizine but there was no report of any focal weakness or numbness or any syncopal episode. According to the ED note, her son also reported that she might have had a right facial droop. She is already on Aspirin 325 mg and Plavix 75 mg daily. In the ED, her temperature was 97.6, heart rate 74, respiratory rate 19, blood pressure 123/74 with oxygen saturation of 96% on room air. Her initial troponin was negative. A chest x-ray was done which was unremarkable. She also had a CAT scan of the head which did not show any acute findings. She received aspirin 325 mg 1. Physical Exam Vital Signs: Temp Pulse Resp BP Pulse Ox 97.9 F 81 16 133/62 H 97 06/30/17 09:54 06/30/17 09:54 06/30/17 09:54 06/30/17 09:54 06/30/17 09:54 Intake & Output 06/29/17 06/30/17 07/01/17 06:59 06:59 07:59 Intake Total 392 1607 Balance 392 1607 Weight 80.2 kg General appearance: PRESENT: no acute distress, cooperative Head exam: PRESENT: atraumatic, normocephalic Eye exam: PRESENT: conjunctiva pink, EOMI Ear exam: PRESENT: normal external ear exam Respiratory exam: PRESENT: clear to auscultation arlin, unlabored. ABSENT: rales , rhonchi, wheezes Cardiovascular exam: PRESENT: RRR. ABSENT: systolic murmur Pulses: PRESENT: normal radial pulses GI/Abdominal exam: PRESENT: normal bowel sounds, soft. ABSENT: distended, guarding, tenderness Rectal exam: PRESENT: deferred Musculoskeletal exam: PRESENT: normal inspection, other - with exception of splint on left wrist due to recent fracture repair Neurological exam: PRESENT: alert, awake, oriented to person, oriented to place Psychiatric exam: PRESENT: appropriate affect. ABSENT: anxious Skin exam: PRESENT: dry, warm Results Laboratory Results: 06/29/17 04:16 06/29/17 04:16 06/30/17 04:21 Vitamin B12 > 1000.0 H 06/29/17 06/29/17 12:45 12:45 Creatine Kinase 88 CK-MB (CK-2) 0.81 Troponin I < 0.012 Impressions: Chest X-Ray 06/28/17 00:00 IMPRESSION: No significant interval change. No acute findings. Other findings as noted above. Head CT 06/28/17 00:00 IMPRESSION: MICROVASCULAR ISCHEMIA AND GENERALIZED ATROPHY. NO ACUTE IMAGING FINDINGS IN THE BRAIN EVIDENCE OF ACUTE STROKE: NO. Head MRI 06/28/17 21:16 IMPRESSION: ATROPHY AND CHRONIC MICRO-VASCULAR ISCHEMIC CHANGES. OTHERWISE NORMAL MRI OF THE BRAIN WITHOUT INTRAVENOUS GADOLINIUM CONTRAST. EVIDENCE OF ACUTE STROKE: NO. Brain MRI with MRA 06/28/17 21:17 IMPRESSION: 1. No abnormality identified in the intracranial circulation. 2. No evidence of cervical carotid arterial stenosis. Neck MRA 06/28/17 21:17 IMPRESSION: 1. No abnormality identified in the intracranial circulation. 2. No evidence of cervical carotid arterial stenosis. Qualifiers - * PATEINT BEING DISCHARGED WITH ANY OF THE FOLLOWING DIAGNOSIS?: Stroke Stroke Pt being discharged on Anti-thrombolytic therapy?: Yes Stroke Pt being discharged on Anti-coagulation therapy?: No Reason(s) for not prescribing Anti-coagulation therapy:: Not indicated Stroke Pt being discharged on Statins?: Yes
[2017-06-30] MEDS ORDERED: VALSARTAN 80 MG TABLET PO SCH (20:00)
[2017-07-02] MEDS ORDERED: ASPIRIN 325 MG TABLET PO SCH (10:00)
== END 2017-06-30 11:14 | disposition home health service (06) ==
LOC: ER 17:47 → EH 19:56 → 3N 22:32
PROVIDERS: ADMIT Internal Medicine Geriatric Medicine; ATTEND Internal Medicine Geriatric Medicine
DX: G45.9 Transient cerebral ischemic attack, unspecified (principal); I10 Essential (primary) hypertension; S62.102D Fracture of unspecified carpal bone, left wrist, subsequent encounter for fracture with routine healing; W19.XXXD Unspecified fall, subsequent encounter; R26.81 Unsteadiness on feet; F03.90 Unspecified dementia, unspecified severity, without behavioral disturbance, psychotic disturbance, mood disturbance, and anxiety; N39.0 Urinary tract infection, site not specified; R29.6 Repeated falls; Z60.2 Problems related to living alone; F80.81 Childhood onset fluency disorder; Z79.82 Long term (current) use of aspirin; Z79.02 Long term (current) use of antithrombotics/antiplatelets; Z86.73 Personal history of transient ischemic attack (TIA), and cerebral infarction without residual deficits; Z91.81 History of falling; Z90.49 Acquired absence of other specified parts of digestive tract; Z90.710 Acquired absence of both cervix and uterus; Z98.51 Tubal ligation status
CPT/HCPCS: 93005; 99285; 36415 ×3; 82553 ×2; 82607 ×2; 82550 ×2; 82746; 85025; 85027; 85610; 85730; 80048; 80053; 81001; 84484 ×2; 83036; 80061; 93306; 70551; 70547; 70544; 71045; 70450; 93010; 97110; 97163; A9270 ×20; J1644 ×2; J3490 ×2; G8978; G8979; G0378

== ENCOUNTER 2017-08-27 14:55 | Emergency (ER) | payer MEDICARE, BC ==
--- NOTE | 2017-08-27 15:31 | ER Document Report ---
ED Medical Screen (RME) - General Chief Complaint: Laceration Stated Complaint: FALL/HEAD INJURY Time Seen by Provider: 08/27/17 15:22 Notes: RAPID MEDICAL EVALUATION DISCLOSURE I have seen this patient as part of a Rapid Medical Evaluation and, if applicable, placed any initially appropriate orders. The patient will be seen and fully evaluated, including a full history and physical exam, by a provider ( in Main ED or Fast Track) when a room becomes available. 81-year-old female on aspirin and one other blood thinner (family does not know the name of the other blood thinner but thinks it might be Plavix) here status post fall just prior to arrival this afternoon. The family states that her ADT monitor is supposed to automatically detect when she falls however it did not set off the alarm. When the patient finally got to the phone and called family , she seemed more confused than her baseline dementia. They brought her in for evaluation. The patient denies any urinary frequency dysuria nausea vomiting and only complains of pain at the laceration. Patient reports that she missed a step and fell forward and that this is the reason she fell. EXAM Pleasantly conversational Several centimeters long laceration at the top of the head, not bleeding at this time TRAVEL OUTSIDE OF THE [place] IN LAST 30 DAYS: No - Related Data Allergies/Adverse Reactions: Sulfa (Sulfonamide Antibiotics) Allergy (Unknown, Verified 06/28/17 17:49) Past Medical History - Social History Frequency of alcohol use: None Drug Abuse: None - Past Medical History Cardiac Medical History: Reports: Hx Hypercholesterolemia Denies: Hx Atrial Fibrillation, Hx Congestive Heart Failure, Hx Coronary Artery Disease, Hx Heart Attack, Hx Hypertension, Hx Peripheral Vascular Disease , Hx Heart Murmur Pulmonary Medical History: Denies: Hx Asthma, Hx Bronchitis, Hx COPD, Hx Pneumonia, Hx Tuberculosis Neurological Medical History: Denies: Hx Cerebrovascular Accident, Hx Seizures Endocrine Medical History: Denies: Hx Graves' Disease, Hx Hyperthyroidism, Hx Hypothyroidism Renal/ Medical History: Reports: Hx Kidney Stones. Denies: Hx Peritoneal Dialysis GI Medical History: Reports: Hx Gastroesophageal Reflux Disease, Hx Ulcer. Denies: Hx Cirrhosis, Hx Crohn's Disease, Hx Hepatitis, Hx Hiatal Hernia, Hx Irritable Bowel, Hx Liver Failure, Hx Pancreatitis Musculoskeltal Medical History: Reports Hx Arthritis, Denies Hx Multiple Sclerosis Psychiatric Medical History: Reports: Hx Depression Denies: Hx Bipolar Disorder, Hx Dementia, Hx Post Traumatic Stress Disorder, Hx Schizophrenia Infectious Medical History: Denies: Hx Hepatitis Past Surgical History: Reports: Hx Appendectomy - 1958, Hx Cholecystectomy - 1990, Hx Hysterectomy, Hx Orthopedic Surgery - lower back surgery; left wrist surgery in 04/2017 post fall., Hx Tubal Ligation. Denies: Hx Bowel Surgery, Hx Section, Hx Colostomy, Hx Coronary Artery Bypass Graft, Hx Gastric Bypass Surgery, Hx Herniorrhaphy, Hx Mastectomy, Hx Pacemaker, Hx Tonsillectomy - Immunizations Hx Diphtheria, Pertussis, Tetanus Vaccination: - unknon History of Influenza Vaccine for 01/2017 - 06/2017 Season: Yes Influenza Administration Date for 01/2017 - 06/2017 Season: 02/21/17 Physical Exam - Vital signs Vitals: Temp Pulse Resp BP Pulse Ox 97.5 F 69 18 122/71 96 08/27/17 15:02 08/27/17 15:02 08/27/17 15:02 08/27/17 15:02 08/27/17 15:02 Course - Vital Signs Vital signs: Temp Pulse Resp BP Pulse Ox 97.5 F 69 18 122/71 96 08/27/17 15:02 08/27/17 15:02 08/27/17 15:02 08/27/17 15:02 08/27/17 15:02
--- NOTE | 2017-08-27 15:54 | RADIOLOGY REPORT (SQ) ---
EXAM DESCRIPTION: CT HEAD WITHOUT COMPLETED DATE/TIME: 08/27/2017 3:44 pm REASON FOR STUDY: s/p fall, confusion, on blood thinner; bleed? COMPARISON: None. TECHNIQUE: Axial images acquired through the brain without intravenous contrast. Images reviewed wi th bone, brain and subdural windows. Images stored on PACS. All CT scanners at this facility use dose modulation, iterative reconstruction, and/or weight based d osing when appropriate to reduce radiation dose to as low as reasonably achievable (ALARA). [facility]: Dose Right [facility]: CareDose [facility]: Dose Right [facility]: Teradose 4D [facility]: Nexmo RADIATION DOSE: CT Rad equipment meets quality standard of care and radiation dose reduction techniq ues were employed. CTDIvol: 53.2 mGy. DLP: 991 mGy-cm.mGy. LIMITATIONS: None. FINDINGS: VENTRICLES: Prominent. CEREBRUM: No masses. No hemorrhage. No midline shift. Areas of low density in the white matter mos t likely due to chronic micro-vascular ischemic change. No evidence for acute infarction. CEREBELLUM: No masses. No hemorrhage. No alteration of density. No evidence for acute infarction. EXTRAAXIAL SPACES: Age-related involutional change. No fluid collections. No masses. ORBITS AND GLOBE: No intra- or extraconal masses. Normal contour of globe without masses. CALVARIUM: No fracture. PARANASAL SINUSES: No fluid or mucosal thickening. SOFT TISSUES: No mass or hematoma. OTHER: No other significant finding. IMPRESSION: CHRONIC CHANGES OF ATROPHY AND MICROVASCULAR ISCHEMIA. NO ACUTE PROCESS. EVIDENCE OF ACUTE STROKE: NO. TECHNICAL DOCUMENTATION: JOB ID: [id number] Quality ID # [id number]: Final reports with documentation of one or more dose reduction techniques (e.g., Au tomated exposure control, adjustment of the mA and/or kV according to patient size, use of iterative reconstruction technique) 2010 [employer]- All Rights Reserved Reading location - IP/workstation name: [email or web address]
[2017-08-27 16:33] LABS: ABSOLUTE EOSINOPHILS # (AUTO) 0.1 10^3/uL (0.0-0.6); ABSOLUTE LYMPHOCYTES (AUTO) 1.4 10^3/uL (0.5-4.7); ABSOLUTE MONOCYTES (AUTO) 0.5 10^3/uL (0.1-1.4); ABSOLUTE NEUT (AUTO) 2.7 10^3/uL (1.7-8.2); BASOPHILS % (AUTO) 0.5 % (0-2); EOSINOPHILS % (AUTO) 2.4 % (0-6); HEMATOCRIT 36.3 % (36.0-47.0); HEMOGLOBIN 12.3 g/dL (12.0-15.5); LYMPHOCYTES % (AUTO) 29.9 % (13-45); MEAN CORPUSCULAR HEMOGLOBIN 32.2 pg (27.0-33.4); MEAN CORPUSCULAR HGB CONC 33.8 g/dL (32.0-36.0); MEAN CORPUSCULAR VOLUME 95 fl (80-97); MONOCYTES % (AUTO) 10.6 % (3-13); PLATELET COUNT 215 10^3/uL (150-450); RED BLOOD COUNT 3.81 10^6/uL (3.72-5.28); RED CELL DISTRIBUTION WIDTH 14.4 % (11.5-14.0); SEGMENTED NEUTROPHILS % (AUTO) 56.6 % (42-78); TOTAL CELLS COUNTED % (AUTO) 100 %; WHITE BLOOD COUNT 4.8 10^3/uL (4.0-10.5)
[2017-08-27 16:50] LABS: ANION GAP 10 (5-19); BLOOD UREA NITROGEN 17 mg/dL (7-20); CARBON DIOXIDE 30 mmol/L (22-30); CHLORIDE 102 mmol/L (98-107); GLUCOSE 109 mg/dL (75-110); POTASSIUM 4.3 mmol/L (3.6-5.0); SODIUM 141.7 mmol/L (137-145)
[2017-08-27] MEDS ORDERED: LIDOCAINE 4%/TETRACAINE 0.5%/EPI 0.18% 5 ML TOPICAL SOLN TOP ONE (16:59)
--- NOTE | 2017-08-27 16:59 | ER Document Report ---
ED General - General Chief Complaint: Laceration Stated Complaint: FALL/HEAD INJURY Time Seen by Provider: 08/27/17 15:22 Notes: Patient is an 81-year-old female who presents emergency department with a chief complaint complaint of a fall. Her family at the bedside states that she is a fall risk due to previous strokes over the course of her lifetime that she gets weak in her legs. The states that she supposed to walk with a cane in her home but she often refuses to. She states that she was walking into her home from outdoors and standing at her refrigerator and she states that she lost her balance she is treating her to go to her counter that she states that she fell she hit her head. She states that she recalls everything. She denies any chest pain, weakness. Family at the bedside states that she is ambulating without difficulty and consistent with her baseline. She is on blood thinners. She takes Eliquis for history of strokes. Unsure if tetanus status TRAVEL OUTSIDE OF THE [place] IN LAST 30 DAYS: No - Related Data Allergies/Adverse Reactions: Sulfa (Sulfonamide Antibiotics) Allergy (Unknown, Verified 06/28/17 17:49) Past Medical History - Social History Smoking Status: Former Smoker Frequency of alcohol use: None Drug Abuse: None Family History: Reviewed & Not Pertinent Patient has suicidal ideation: No Patient has homicidal ideation: No - Past Medical History Cardiac Medical History: Reports: Hx Hypercholesterolemia Denies: Hx Atrial Fibrillation, Hx Congestive Heart Failure, Hx Coronary Artery Disease, Hx Heart Attack, Hx Hypertension, Hx Peripheral Vascular Disease , Hx Heart Murmur Pulmonary Medical History: Denies: Hx Asthma, Hx Bronchitis, Hx COPD, Hx Pneumonia, Hx Tuberculosis Neurological Medical History: Denies: Hx Cerebrovascular Accident, Hx Seizures Endocrine Medical History: Denies: Hx Graves' Disease, Hx Hyperthyroidism, Hx Hypothyroidism Renal/ Medical History: Reports: Hx Kidney Stones. Denies: Hx Peritoneal Dialysis GI Medical History: Reports: Hx Gastroesophageal Reflux Disease, Hx Ulcer. Denies: Hx Cirrhosis, Hx Crohn's Disease, Hx Hepatitis, Hx Hiatal Hernia, Hx Irritable Bowel, Hx Liver Failure, Hx Pancreatitis Musculoskeltal Medical History: Reports Hx Arthritis, Denies Hx Multiple Sclerosis Psychiatric Medical History: Reports: Hx Depression Denies: Hx Bipolar Disorder, Hx Dementia, Hx Post Traumatic Stress Disorder, Hx Schizophrenia Infectious Medical History: Denies: Hx Hepatitis Past Surgical History: Reports: Hx Appendectomy - 9, Hx Cholecystectomy - 1990, Hx Hysterectomy, Hx Orthopedic Surgery - lower back surgery; left wrist surgery in 04/2017 post fall., Hx Tubal Ligation. Denies: Hx Bowel Surgery, Hx Section, Hx Colostomy, Hx Coronary Artery Bypass Graft, Hx Gastric Bypass Surgery, Hx Herniorrhaphy, Hx Mastectomy, Hx Pacemaker, Hx Tonsillectomy - Immunizations Hx Diphtheria, Pertussis, Tetanus Vaccination: - unknon Hx Pneumococcal Vaccination: 06/25/17 Review of Systems - Review of Systems Constitutional: See HPI EENT: No symptoms reported Cardiovascular: No symptoms reported Respiratory: No symptoms reported Gastrointestinal: No symptoms reported Musculoskeletal: No symptoms reported Skin: See HPI Neurological/Psychological: See HPI -: Yes All other systems reviewed and negative Physical Exam - Vital signs Vitals: Temp Pulse Resp BP Pulse Ox 97.5 F 69 18 122/71 96 08/27/17 15:02 08/27/17 15:02 08/27/17 15:02 08/27/17 15:02 08/27/17 15:02 - Notes Notes: PHYSICAL EXAMINATION: GENERAL: Well-appearing, well-nourished and in no acute distress. GCS 15 HEAD: Normocephalic. EYES: Pupils equal round and reactive to light, extraocular movements intact, sclera anicteric, conjunctiva are normal. ENT: Nares patent, oropharynx clear without exudates. Moist mucous membranes. No hemanotympanum . No blood in nares. No dental fracture NECK: Normal range of motion, supple without lymphadenopathy. Trachea midline LUNGS: Breath sounds clear to auscultation bilaterally and equal. No wheezes rales or rhonchi. HEART: Regular rate and rhythm without murmurs. Pulses intact all throughout. ABDOMEN: Soft, nontender, nondistended abdomen. No guarding, no rebound. No masses appreciated. Musculoskeletal: Normal range of motion, no pitting or edema. No cyanosis. Hip non tender, stable. NEUROLOGICAL: Cranial nerves grossly intact. Face symmetric. Tongue protrudes midline. Extraocular motions intact. Pupils are 2 mm and equally reactive. Normal speech, normal gait. 5 out of 5 strength in both the distal and proximal upper and lower extremities bilaterally. Sensation is grossly intact throughout. Finger to nose testing normal. Pronator drift normal. PSYCH: Normal mood, normal affect. SKIN: Warm, No active bleeding. 3cm scalp laceration without bleeding Course - Re-evaluation Re-evalutation: 08/27/17 17:45 Presentation of fall. Patient normotensive, alert, without focal neurologic deficits at time of arrival. Denies syncope was during exertion. No preceding symptoms of palpitations, chest pain, or shortness of breath. Patient asymptomatic at time of arrival. EKG is without evidence of HCOM, right heart strain, ST changes to suggest ischemia, prolong QTc, delta wave, epsilon wave, or Brugada syndrome. Patient denies any family history of sudden cardiac , personal history of of structural heart disease. Patient denies any symptoms to suggest an acute PE, AL, TAD, SAH, seizure, or acute GI bleed as the etiology of their syncope today. On exam, no murmurs to suggest critical aortic stenosis as possible etiology. Her CT of the head was negative for stroke, hemorrhage or fracture. Wound was irrigated and closed with pennie. Her workup ordered in triage shows negative troponin. UA with evidenc eof UTI. Based on overall clinical history, exam findings, vitals, and patients appearance, I feel it is safe for patient to be discharged home at this time with close outpatient follow -up and strict return precautions. Patient is in agreement with this plan, has verbalized indications for return to ED, and questions have been answered. - Vital Signs Vital signs: Temp Pulse Resp BP Pulse Ox 97.7 F 63 18 155/84 H 100 08/27/17 18:58 08/27/17 18:58 08/27/17 18:58 08/27/17 18:58 08/27/17 18:58 - Laboratory Result Diagrams: 08/27/17 16:17 08/27/17 16:17 Laboratory results interpreted by me: 08/27/17 08/27/17 08/27/17 16:17 16:17 16:31 RDW 14.4 H Est GFR (Non-Af Amer) 59 L Ur Leukocyte Esterase LARGE H Urine Ascorbic Acid 40 H - Diagnostic Test Radiology reviewed: Image reviewed, Reports reviewed - EKG Interpretation by Me EKG shows normal: Sinus rhythm Rate: Normal Rhythm: NSR When compared to previous EKG there are: No significant change Discharge - Discharge Clinical Impression: UTI (urinary tract infection) Qualifiers: Urinary tract infection type: acute cystitis Hematuria presence: without hematuria Qualified Code(s): N30.00 - Acute cystitis without hematuria Fall Qualifiers: Encounter type: initial encounter Qualified Code(s): W19.XXXA - Unspecified fall, initial encounter Condition: Good Disposition: HOME, SELF-CARE Instructions: Cephalexin ([facility]), Care of Stapled Wounds ([facility]), Urinary Tract Infection ([facility]) Additional Instructions: Pennie need to be removed in 5-7 days Prescriptions: Cephalexin Monohydrate [Keflex 500 mg Capsule] 500 mg PO BID #10 capsule Referrals: MIKE PARNELL MD [Primary Care Provider] - Follow up in 1 week
[2017-08-27 17:32] LABS: AMORPHOUS SEDIMENT,URINE TRACE /HPF; APPEARANCE,URINE CLOUDY; BILIRUBIN,URINE NEGATIVE (NEGATIVE); COLOR,URINE YELLOW; GLUCOSE, URINE NEGATIVE (NEGATIVE); KETONES,URINE NEGATIVE (NEGATIVE); LEUKOCYTE ESTERASE,URINE LARGE (NEGATIVE); NITRITE,URINE NEGATIVE (NEGATIVE); PROTEIN,URINE NEGATIVE (NEGATIVE); URINE SPECIFIC GRAVITY 1.009; UROBILINOGEN,URINE NEGATIVE mg/dL (<2.0)
[2017-08-27] MEDS ORDERED: DIPH/PERTUSS(ACELL)/TETANUS VAC/PF 0.5 ML SYR (>=10YO) IM ONE (17:53)
[2017-08-27] MEDS ORDERED: CEPHALEXIN 500 MG CAPSULE PO ONE (17:53)
[2017-08-27] MEDS ORDERED: ACETAMINOPHEN 325 MG TABLET PO ONE (17:53)
--- NOTE | 2017-08-27 18:21 | EKG REPORT ---
SEVERITY:- NORMAL ECG - SINUS RHYTHM : Confirmed by: Simon Chen MD 27-Aug-2017 18:20:53
[2017-08-27 19:00] VITALS: BP 155/84
== END 2017-08-27 19:00 | disposition home or self-care (01) ==
LOC: ER 14:55
DX: S01.01XA Laceration without foreign body of scalp, initial encounter (principal); W18.39XA Other fall on same level, initial encounter; Y92.009 Unspecified place in unspecified non-institutional (private) residence as the place of occurrence of the external cause; N30.00 Acute cystitis without hematuria; Z79.01 Long term (current) use of anticoagulants; Z86.73 Personal history of transient ischemic attack (TIA), and cerebral infarction without residual deficits; Z87.891 Personal history of nicotine dependence; Z88.2 Allergy status to sulfonamides
CPT/HCPCS: 93005; 99284; 90471; 36415; 85025; 80048; 81001; 84484; 70450; 90715; 93010; 12002; A9270 ×2; J3490

== ENCOUNTER 2017-10-14 22:01 | Emergency (ER) | payer MEDICARE, BC ==
--- NOTE | 2017-10-14 22:44 | ER Document Report ---
ED Fall - General Chief Complaint: Fall Stated Complaint: FALL/ ANKLE KNEE PAIN Time Seen by Provider: 10/14/17 22:37 Notes: Patient is an 82-year-old female that comes emergency department for chief complaint of pain to her right ankle, leg, and all the way up to her right hip. She states that she accidentally twisted her ankle and then fell and hit her knee. She denies falling further, denies abdominal, chest, back, or head injuries. She is on Plavix. She iced her foot and wrapped in an Emmanuel wrap. She was using a walker at home but having difficulty walking because of pain. Son at bedside. Lives at home. No other complaints. TRAVEL OUTSIDE OF THE [place] IN LAST 30 DAYS: No - Related data Allergies/Adverse Reactions: Sulfa (Sulfonamide Antibiotics) Allergy (Unknown, Verified 10/15/17 00:08) Past Medical History - General Information source: Patient - Social History Smoking Status: Never Smoker Frequency of alcohol use: None Drug Abuse: None Lives with: Family Family History: Reviewed & Not Pertinent - Past Medical History Cardiac Medical History: Reports: Hx Hypercholesterolemia Denies: Hx Atrial Fibrillation, Hx Congestive Heart Failure, Hx Coronary Artery Disease, Hx Heart Attack, Hx Hypertension, Hx Peripheral Vascular Disease , Hx Heart Murmur Pulmonary Medical History: Denies: Hx Asthma, Hx Bronchitis, Hx COPD, Hx Pneumonia, Hx Tuberculosis Neurological Medical History: Denies: Hx Cerebrovascular Accident, Hx Seizures Endocrine Medical History: Denies: Hx Graves' Disease, Hx Hyperthyroidism, Hx Hypothyroidism Renal/ Medical History: Reports: Hx Kidney Stones. Denies: Hx Peritoneal Dialysis GI Medical History: Reports: Hx Gastroesophageal Reflux Disease, Hx Ulcer. Denies: Hx Cirrhosis, Hx Crohn's Disease, Hx Hepatitis, Hx Hiatal Hernia, Hx Irritable Bowel, Hx Liver Failure, Hx Pancreatitis Musculoskeltal Medical History: Reports Hx Arthritis, Denies Hx Multiple Sclerosis Psychiatric Medical History: Reports: Hx Depression Denies: Hx Bipolar Disorder, Hx Dementia, Hx Post Traumatic Stress Disorder, Hx Schizophrenia Infectious Medical History: Denies: Hx Hepatitis Past Surgical History: Reports: Hx Appendectomy - 1958, Hx Cholecystectomy - 1990, Hx Hysterectomy, Hx Orthopedic Surgery - lower back surgery; left wrist surgery in 04/2017 post fall., Hx Tubal Ligation. Denies: Hx Bowel Surgery, Hx Section, Hx Colostomy, Hx Coronary Artery Bypass Graft, Hx Gastric Bypass Surgery, Hx Herniorrhaphy, Hx Mastectomy, Hx Pacemaker, Hx Tonsillectomy - Immunizations Hx Diphtheria, Pertussis, Tetanus Vaccination: - unknon Hx Pneumococcal Vaccination: 06/25/17 Review of Systems - Review of Systems Constitutional: No symptoms reported EENT: No symptoms reported Cardiovascular: No symptoms reported Respiratory: No symptoms reported Gastrointestinal: No symptoms reported Genitourinary: No symptoms reported Female Genitourinary: No symptoms reported Musculoskeletal: See HPI Skin: No symptoms reported Hematologic/Lymphatic: No symptoms reported Neurological/Psychological: No symptoms reported Physical Exam - Vital signs Vitals: Temp Pulse Resp BP Pulse Ox 97.5 F 81 16 112/58 L 96 10/14/17 22:17 10/14/17 22:17 10/14/17 22:17 10/14/17 22:17 10/14/17 22:17 - Notes Notes: GENERAL: Alert, interacts well. No acute distress. HEAD: Normocephalic, atraumatic. EYES: Pupils equal, round, and reactive to light. Extraocular movements intact. ENT: Oral mucosa moist, tongue midline. NECK: Full range of motion. Supple. Trachea midline. LUNGS: Clear to auscultation bilaterally, no wheezes, rales, or rhonchi. No respiratory distress. HEART: Regular rate and rhythm. No murmur ABDOMEN: Soft, non-tender. Non-distended. Bowel sounds present in all 4 quadrants. EXTREMITIES: Full range of motion of all extremities, tenderness to lateral malleolus of the right ankle and generally to the right knee, minimally to the right hip. Some a small swelling at the lateral malleolus but otherwise no evidence of trauma. Normal distal neurovascular exam. BACK: no cervical, thoracic, lumbar midline tenderness. No saddle anesthesia, normal distal neurovascular exam. NEUROLOGICAL: Alert and conversational, oriented to person and place but not to events. Normal speech. [cranial nerves II through XII grossly intact]. PSYCH: Normal affect, normal mood. SKIN: Warm, dry, normal turgor. No rashes or lesions noted. Course - Re-evaluation Re-evalutation: Patient with slight swelling over the lateral malleoli of the right ankle, mild tenderness of the knee with full range of motion and no obvious swelling, mild tenderness with palpation over the right hip. Patient can still ambulate but does so with unsteadiness and some discomfort. No head injury, unremarkable physical exam otherwise with no evidence of trauma otherwise. X-rays unremarkable with no acute findings except for small effusion in the knee. Patient is not complaining of pain in the knee, only in the ankle when walking. Provided with supportive brace, discussed with patient and son in detail. They state that they feel they need more assistance at home, she does have some assistance at home already but they might need placement, they are asking for assistance with this although they are ready to go home at this time. channel development manager consult was placed, discussed follow-up, discussed return precautions, patient and son state understanding and agreement with plan. - Vital Signs Vital signs: Temp Pulse Resp BP Pulse Ox 97.7 F 62 16 122/80 97 10/15/17 00:27 10/15/17 00:27 10/15/17 00:27 10/15/17 00:10/15/17 00:27 Procedures - Immobilization right ankle Pre-Proc Neuro Vasc Exam: Normal Immobilizer type: Ankle stirrup Performed by: PCT Post-Proc Neuro Vasc Exam: Normal Alignment checked and good: Yes Discharge - Discharge Clinical Impression: Right hip pain Fall Qualifiers: Encounter type: initial encounter Qualified Code(s): W19.XXXA - Unspecified fall, initial encounter Right ankle pain Qualifiers: Chronicity: acute Qualified Code(s): M25.571 - Pain in right ankle and joints of right foot Right knee pain Qualifiers: Chronicity: acute Qualified Code(s): M25.561 - Pain in right knee Condition: Stable Disposition: HOME, SELF-CARE Additional Instructions: Evaluation and imaging indicates a sprain of the ankle, some fluid in the knee joint, but otherwise is normal including no dislocations, fractures, etc. Recommendation is to use the ankle stirrup brace for the ankle, Emmanuel wrap the knee, apply ice, take Tylenol or ibuprofen, and rest. Use the walker. A case hardener consult has been placed, they will be contacting you to assist with options and possible placement. Return to the emergency department for any concerning symptoms including severe swelling or pain or any other concerning symptoms. Referrals: MIKE PARNELL MD [Primary Care Provider] - Follow up in 3-5 days
--- NOTE | 2017-10-14 23:51 | RADIOLOGY REPORT (SQ) ---
EXAM DESCRIPTION: XR HIP 2 OR MORE VIEWS COMPLETED DATE/TME: 10/14/2017 22:43 CLINICAL HISTORY: 82 years Female, fall, pain COMPARISON: None. Findings: Small bilateral osteophyte of the right greater trochanter. Moderate lower lumbar disc desiccation. Bones, joints, and soft tissues of the XR RIGHT HIP 2 OR MORE VIEWS appear otherwise intact. IMPRESSION: No acute findings.
--- NOTE | 2017-10-14 23:55 | RADIOLOGY REPORT (SQ) ---
EXAM DESCRIPTION: XR ANKLE 2 VIEWS, XR KNEE 4 OR MORE VIEWS, XR TIBIA FIBULA 2 VIEWS COMPLETED DATE/TME: 10/14/2017 22:43 CLINICAL HISTORY: 82 years, Female, fall, pain COMPARISON: None. NUMBER OF VIEWS: 8 LIMITATIONS: None. FINDINGS: Atherosclerosis, moderate plantar fascial enthesophyte, small right knee effusion, moderate right first metatarsophalangeal osteoarthritis. Moderate chondrocalcinosis. Bones, joints, and soft tissues of the right ankle, right lower leg, right knee appear otherwise intact. IMPRESSION: Small right knee effusion.
[2017-10-15 01:03] VITALS: BP 122/80
== END 2017-10-15 01:00 | disposition home or self-care (01) ==
LOC: ER 22:01
DX: M25.571 Pain in right ankle and joints of right foot (principal); M25.561 Pain in right knee; M25.551 Pain in right hip; M79.604 Pain in right leg; X50.1XXA Overexertion from prolonged static or awkward postures, initial encounter; Z79.02 Long term (current) use of antithrombotics/antiplatelets
CPT/HCPCS: 99283; L4350; L1902

== ENCOUNTER 2017-10-15 16:34 | Inpatient (IN) | payer MEDICARE, BC ==
[2017-10-15] MEDS ORDERED: NORMAL SALINE 1000 ML 1,000 ML IV PRN (16:53)
--- NOTE | 2017-10-15 16:56 | ER Document Report ---
ED General - General Chief Complaint: Vertigo Stated Complaint: DIZZINESS Time Seen by Provider: 10/15/17 16:53 Mode of Arrival: Ambulatory Information source: Patient Notes: Chief complaint: Frequent fall History of complain:( obtained from----patient) 82 years old female who was on 80 mg of Diovan, was brought in again because of another fall since the last visit yesterday. She has been frequently falling. She feels lightheaded and dizzy and falls down. Last night sprained her right ankle which was evaluated in the ED. Pleasant female denies any headache but she is demented her history is not reliable. Findings claimed that she is also having shortness of breath on exertion. Onset: As above Duration: Frequent Severity: Moderate Quality: Unknown Context: Unknown Exacerbating factor and relieving factors: Standing up and walking REVIEW OF SYSTEMS: Not possible to obtain PHYSICAL EXAMINATION: GENERAL: Well-appearing, well-nourished and in no acute distress. Pleasant looking HEAD: Atraumatic, normocephalic. EYES: Pupils equal round and reactive to light, extraocular movements intact, conjunctiva are normal. ENT: Nares patent, oropharynx clear without exudates. Moist mucous membranes. NECK: Normal range of motion, supple without lymphadenopathy LUNGS: Breath sounds clear to auscultation bilaterally and equal. No wheezes rales or rhonchi. HEART: Regular rate and rhythm without murmurs ABDOMEN: Soft, nontender, nondistended abdomen. No guarding, no rebound. No masses appreciated. Examination of genitals-deferred Musculoskeletal: Normal range of motion, no pitting or edema. No cyanosis. Right ankle swelling noted NEUROLOGICAL: Cranial nerves grossly intact. Normal speech, normal gait. Normal sensory, motor exams PSYCH: Normal mood, normal affect. SKIN: Warm, Dry, normal turgor, no rashes or lesions noted. Dictation was performed using [employer] voice recognition software TRAVEL OUTSIDE OF THE [place] IN LAST 30 DAYS: No - Related Data Allergies/Adverse Reactions: Sulfa (Sulfonamide Antibiotics) Allergy (Unknown, Verified 10/15/17 00:08) Past Medical History - Social History Smoking Status: Former Smoker Cigarette use (# per day): No Chew tobacco use (# tins/day): No Smoking Education Provided: No Frequency of alcohol use: Rare Drug Abuse: None Family History: Reviewed & Not Pertinent - Past Medical History Cardiac Medical History: Reports: Hx Hypercholesterolemia Denies: Hx Atrial Fibrillation, Hx Congestive Heart Failure, Hx Coronary Artery Disease, Hx Heart Attack, Hx Hypertension, Hx Peripheral Vascular Disease , Hx Heart Murmur Pulmonary Medical History: Denies: Hx Asthma, Hx Bronchitis, Hx COPD, Hx Pneumonia, Hx Tuberculosis Neurological Medical History: Denies: Hx Cerebrovascular Accident, Hx Seizures Endocrine Medical History: Denies: Hx Graves' Disease, Hx Hyperthyroidism, Hx Hypothyroidism Renal/ Medical History: Reports: Hx Kidney Stones. Denies: Hx Peritoneal Dialysis GI Medical History: Reports: Hx Gastroesophageal Reflux Disease, Hx Ulcer. Denies: Hx Cirrhosis, Hx Crohn's Disease, Hx Hepatitis, Hx Hiatal Hernia, Hx Irritable Bowel, Hx Liver Failure, Hx Pancreatitis Musculoskeltal Medical History: Reports Hx Arthritis, Denies Hx Multiple Sclerosis Psychiatric Medical History: Reports: Hx Depression Denies: Hx Bipolar Disorder, Hx Dementia, Hx Post Traumatic Stress Disorder, Hx Schizophrenia Infectious Medical History: Denies: Hx Hepatitis Past Surgical History: Reports: Hx Appendectomy - 1958, Hx Cholecystectomy - 1990, Hx Hysterectomy, Hx Orthopedic Surgery - lower back surgery; left wrist surgery in 04/2017 post fall., Hx Tubal Ligation. Denies: Hx Bowel Surgery, Hx Section, Hx Colostomy, Hx Coronary Artery Bypass Graft, Hx Gastric Bypass Surgery, Hx Herniorrhaphy, Hx Mastectomy, Hx Pacemaker, Hx Tonsillectomy - Immunizations Hx Diphtheria, Pertussis, Tetanus Vaccination: - unknon Hx Pneumococcal Vaccination: 06/25/17 Physical Exam - Vital signs Vitals: Temp Pulse Resp BP Pulse Ox 98.8 F 91 18 125/72 97 10/15/17 16:43 10/15/17 16:43 10/15/17 16:43 10/15/17 16:43 10/15/17 16:43 Course - Vital Signs Vital signs: Temp Pulse Resp BP Pulse Ox 97.3 F 73 17 137/64 H 98 10/16/17 07:38 10/16/17 07:38 10/16/17 07:38 10/16/17 07:38 10/16/17 07:38 - Laboratory Result Diagrams: 10/16/17 04:08 10/16/17 04:08 Laboratory results interpreted by me: 10/15/17 10/15/17 16:45 19:14 RBC 3.40 L Hgb 10.9 L Hct 32.1 L RDW 14.3 H Urine Ascorbic Acid 40 H - EKG Interpretation by Pr EKG shows normal: Sinus rhythm - Sinus rhythm at rate of 77 bpm normal axis no acute ST elevation ST depression T wave changes noted. Discharge - Discharge Clinical Impression: Encephalopathy acute, Frequent falls Condition: Fair Disposition: ADMITTED INPATIENT Admitting Provider: Hospitalist Unit Admitted: Medical Floor
[2017-10-15 17:29] LABS: ABSOLUTE EOSINOPHILS # (AUTO) 0.1 10^3/uL (0.0-0.6); ABSOLUTE MONOCYTES (AUTO) 0.7 10^3/uL (0.1-1.4); BASOPHILS % (AUTO) 0.4 % (0-2); EOSINOPHILS % (AUTO) 1.9 % (0-6); HEMATOCRIT 32.1 % (36.0-47.0); HEMOGLOBIN 10.9 g/dL (12.0-15.5); LYMPHOCYTES % (AUTO) 17.3 % (13-45); MEAN CORPUSCULAR HEMOGLOBIN 32.1 pg (27.0-33.4); MEAN CORPUSCULAR VOLUME 95 fl (80-97); MONOCYTES % (AUTO) 12.4 % (3-13); PLATELET COUNT 211 10^3/uL (150-450); RED CELL DISTRIBUTION WIDTH 14.3 % (11.5-14.0); TOTAL CELLS COUNTED % (AUTO) 100 %; WHITE BLOOD COUNT 5.8 10^3/uL (4.0-10.5)
[2017-10-15 17:42] LABS: ALANINE AMINOTRANSFERASE 16 U/L (9-52); ALBUMIN 3.9 g/dL (3.5-5.0); ALKALINE PHOSPHATASE 68 U/L (38-126); ANION GAP 10 (5-19); ASPARTATE AMINO TRANSFERASE 20 U/L (14-36); BILIRUBIN,DIRECT 0.3 mg/dL (0.0-0.4); BILIRUBIN,TOTAL 0.6 mg/dL (0.2-1.3); BLOOD UREA NITROGEN 15 mg/dL (7-20); CALCIUM 9.6 mg/dL (8.4-10.2); CARBON DIOXIDE 26 mmol/L (22-30); CHLORIDE 106 mmol/L (98-107); CREATINE KINASE 69 U/L (30-135); GLUCOSE 103 mg/dL (75-110); POTASSIUM 4.3 mmol/L (3.6-5.0); SODIUM 142.1 mmol/L (137-145); TOTAL PROTEIN 6.6 g/dL (6.3-8.2)
[2017-10-15 17:54] LABS: CREATINE KINASE MB 0.74 ng/mL (<4.55)
[2017-10-15 17:55] LABS: TROPONIN I < 0.012 ng/mL
[2017-10-15] MEDS ORDERED: MAG HYDROX/AL HYDROX/SIMETH SUSP 30 ML UDCUP PO PRN (19:15)
[2017-10-15] MEDS ORDERED: MAGNESIUM HYDROXIDE SUSP 30 ML UDCUP PO PRN (19:15)
[2017-10-15] MEDS ORDERED: IPRATROPIUM/ALBUTEROL 0.5-2.5 MG/3 ML AMPUL NEB PRN (19:15)
[2017-10-15] MEDS ORDERED: ACETAMINOPHEN 325 MG TABLET PO PRN (19:15)
[2017-10-15 19:46] LABS: URINE AMPHETAMINES SCREEN NEGATIVE; URINE BARBITURATES SCREEN NEGATIVE; URINE BENZODIAZEPINES SCREEN UNCONFIRMED POSITIVE; URINE COCAINE SCREEN NEGATIVE; URINE MARIJUANA (THC) SCREEN NEGATIVE; URINE METHADONE SCREEN NEGATIVE; URINE PHENCYCLIDINE SCREEN NEGATIVE
[2017-10-15 20:01] LABS: APPEARANCE,URINE CLEAR; BILIRUBIN,URINE NEGATIVE (NEGATIVE); COLOR,URINE YELLOW; GLUCOSE, URINE NEGATIVE (NEGATIVE); KETONES,URINE NEGATIVE (NEGATIVE); LEUKOCYTE ESTERASE,URINE NEGATIVE (NEGATIVE); NITRITE,URINE NEGATIVE (NEGATIVE); PROTEIN,URINE NEGATIVE (NEGATIVE); URINE SPECIFIC GRAVITY 1.014; UROBILINOGEN,URINE NEGATIVE mg/dL (<2.0)
[2017-10-16] MEDS: HEPARIN SOD (PORCINE) 5,000 UNIT/ML 1 ML SYRINGE SUBCUT SCH ×4 (00:23→22:33)
--- NOTE | 2017-10-16 05:06 | PDOC H&P ---
History of Present Illness Admission Date/PCP: 10/15/17 19:28 MIKE PARNELL MD Patient complains of: Falls and confusion History of Present Illness: FER UP is a 82 year old female with a past medical history of dementia. Presents with confusion and several episodes of fall resulting in scalp laceration and right ankle contusion. Patient is unable to provide history though awake and alert, denying pain despite a seriously contused right ankle. In the emergency room her workup is concerning for new anemia. She is referred to the hospitalist for admission. Medications are under reconciliation. Past Medical History Cardiac Medical History: Reports: Hyperlipidema Denies: Atrial Fibrillation, Congestive Heart Failure, Coronary Artery Disease, Myocardial Infarction, Hypertension, Peripheral Vascular Disease, Heart Murmur Pulmonary Medical History: Denies: Asthma, Bronchitis, Chronic Obstructive Pulmonary Disease (COPD), Pneumonia, Tuberculosis Neurological Medical History: Denies: Seizures Endocrine Medical History: Denies: Hyperthyroidism, Hypothyroidism GI Medical History: Reports: Gastroesophageal Reflux Disease Denies: Cirrhosis, Crohn's Disease, Hepatitis, Hiatal Hernia Musculoskeltal Medical History: Reports: Arthritis Psychiatric Medical History: Reports: Dementia, Depression Denies: Bipolar Disorder, Post Traumatic Stress Disorder Hematology: Denies: Anemia, Sickle Cell Disease Past Surgical History Past Surgical History: Reports: Appendectomy - 1958, Cholecystectomy - 1990, Hysterectomy, Orthopedic Surgery - lower back surgery; left wrist surgery in 2017 post fall., Tubal Ligation Denies: Section, Colostomy, Coronary Artery Bypass Graft, Gastric Bypass Surgery, Herniorrhaphy, Mastectomy, Pacemaker, Tonsillectomy Social History Information Source: [facility] Records Lives with: Alone Smoking Status: Never Smoker Frequency of Alcohol Use: None Hx Recreational Drug Use: No Drugs: None Hx Prescription Drug Abuse: No - Advance Directive Resuscitation Status: Full Code Family History Family History: Other - Unobtainable Parental Family History Reviewed: Yes Children Family History Reviewed: Yes Sibling(s) Family History Reviewed.: Yes Medication/Allergy Home Medications: Alprazolam [Xanax] 1 mg PO Q6HP PRN 10/15/17 Clopidogrel Bisulfate [Plavix 75 mg Tablet] 75 mg PO DAILY 10/15/17 Fluticasone Propionate [Flonase Nasal [place] 50 Mcg/[place] 16 gm] 1 spray NASL DAILY 10/15/17 Ipratropium [place] [Atrovent 0.06% Nasal [place]] 1 spray NASL DAILYP PRN Meclizine HCl [Antivert 25 mg Tablet] 25 mg PO TIDP PRN 10/15/17 Memantine HCl [Namenda 10 mg Tablet] 10 mg PO BID 10/15/17 Omeprazole 40 mg PO DAILY 10/15/17 Promethazine HCl [Phenergan 25 mg Tablet] 25 mg PO Q8HP PRN 10/15/17 Ranitidine HCl [Zantac 150 mg Tablet] 150 mg PO BID 10/15/17 Sertraline HCl [Zoloft] 100 mg PO DAILY 10/15/17 Simvastatin [Zocor 40 mg Tablet] 40 mg PO QHS 10/15/17 Valsartan [Diovan 80 mg Tablet] 80 mg PO DAILY 10/15/17 Allergies/Adverse Reactions: Sulfa (Sulfonamide Antibiotics) Allergy (Unknown, Verified 10/15/17 00:08) Review of Systems ROS unobtainable: Due to mental status Physical Exam Vital Signs: Temp Pulse Resp BP Pulse Ox 97.8 F 72 14 121/61 98 10/16/17 03:44 10/16/17 03:44 10/16/17 03:44 10/16/17 03:44 10/16/17 03:44 Intake & Output 10/14/17 10/15/17 10/16/17 11:59 11:59 11:59 Weight 84.3 kg General appearance: PRESENT: cooperative, mild distress. ABSENT: hard of hearing, obese, severe distress Head exam: PRESENT: atraumatic, normocephalic Eye exam: PRESENT: conjunctiva pink, EOMI, PERRLA. ABSENT: scleral icterus Ear exam: PRESENT: normal external ear exam Mouth exam: PRESENT: moist, tongue midline Neck exam: ABSENT: carotid bruit, JVD, lymphadenopathy, thyromegaly Respiratory exam: PRESENT: clear to auscultation arlin. ABSENT: rales, rhonchi, wheezes Cardiovascular exam: PRESENT: RRR. ABSENT: diastolic murmur, rubs, systolic murmur Pulses: PRESENT: normal dorsalis pedis pul Vascular exam: PRESENT: normal capillary refill GI/Abdominal exam: PRESENT: normal bowel sounds, soft. ABSENT: distended, guarding, mass, organolmegaly, rebound, tenderness Rectal exam: PRESENT: deferred Extremities exam: PRESENT: joint swelling - Right ankle swelling, pedal edema, tenderness, +1 edema. ABSENT: calf tenderness, full ROM - Limited by pain Musculoskeletal exam: ABSENT: full ROM - Right ankle limited by pain Neurological exam: PRESENT: alert, awake, oriented to person, CN II-XII grossly intact. ABSENT: oriented to time, oriented to situation, reflexes normal Psychiatric exam: PRESENT: appropriate affect, normal mood. ABSENT: homicidal ideation, suicidal ideation Skin exam: PRESENT: abrasion - Right knee, dry, intact, warm. ABSENT: cyanosis , rash Assessment & Plan - Diagnosis (1) Anemia Is this a current diagnosis for this admission?: Yes Plan: Patient unable to provide history, follow-up anemia labs. CBC (2) Encephalopathy acute Is this a current diagnosis for this admission?: Yes Plan: Patient has exceptional worsening of dementia of the last week after falls. Concern for postconcussion syndrome. Supportive care fall precautions. Limit benzodiazepine as tolerated given dependence (3) Frequent falls Is this a current diagnosis for this admission?: Yes Plan: Fall precautions discharge planning consult for placement, consider physical therapy (4) Dementia Qualifiers: Dementia type: vascular dementia Dementia behavioral disturbance: without behavioral disturbance Qualified Code(s): F01.50 - Vascular dementia without behavioral disturbance Is this a current diagnosis for this admission?: Yes Plan: Dementia with delirium, continue outpatient regiment, supportive care, - Time Time Spent: 30 to 50 Minutes - Inpatient Certification Medical Necessity: Need Close Monitoring Due to Risk of Patient Decompensation
[2017-10-16 05:15] LABS: ABSOLUTE EOSINOPHILS # (AUTO) 0.1 10^3/uL (0.0-0.6); ABSOLUTE LYMPHOCYTES (AUTO) 1.1 10^3/uL (0.5-4.7); ABSOLUTE MONOCYTES (AUTO) 0.7 10^3/uL (0.1-1.4); ABSOLUTE NEUT (AUTO) 3.1 10^3/uL (1.7-8.2); BASOPHILS % (AUTO) 0.4 % (0-2); EOSINOPHILS % (AUTO) 2.3 % (0-6); HEMATOCRIT 30.9 % (36.0-47.0); HEMOGLOBIN 10.7 g/dL (12.0-15.5); LYMPHOCYTES % (AUTO) 22.3 % (13-45); MEAN CORPUSCULAR HGB CONC 34.6 g/dL (32.0-36.0); MEAN CORPUSCULAR VOLUME 96 fl (80-97); MONOCYTES % (AUTO) 13.5 % (3-13); PLATELET COUNT 186 10^3/uL (150-450); RED BLOOD COUNT 3.23 10^6/uL (3.72-5.28); RED CELL DISTRIBUTION WIDTH 13.9 % (11.5-14.0); SEGMENTED NEUTROPHILS % (AUTO) 61.5 % (42-78); TOTAL CELLS COUNTED % (AUTO) 100 %; WHITE BLOOD COUNT 5.1 10^3/uL (4.0-10.5)
[2017-10-16 05:28] LABS: ABSOLUTE RETICS # 0.057 10^6/uL (0.028-0.122); RETICULOCYTE COUNT (AUTO) 1.75 % (0.66-2.85)
[2017-10-16 05:53] LABS: IRON(TIBC) 32.1 ug/dL (37-170)
[2017-10-16 05:56] LABS: ANION GAP 10 (5-19); BLOOD UREA NITROGEN 11 mg/dL (7-20); CALCIUM 9.3 mg/dL (8.4-10.2); CARBON DIOXIDE 24 mmol/L (22-30); CHLORIDE 109 mmol/L (98-107); GLUCOSE 96 mg/dL (75-110); POTASSIUM 4.1 mmol/L (3.6-5.0); SODIUM 142.6 mmol/L (137-145)
[2017-10-16 07:19] LABS: FOLATE > 20.00 ng/mL (>2.76)
--- NOTE | 2017-10-16 08:00 | EKG REPORT ---
SEVERITY:- NORMAL ECG - SINUS RHYTHM : Confirmed by: Josefina Guan MD 16-Oct-2017 07:59:27
[2017-10-16] MEDS ORDERED: MECLIZINE HCL 25 MG TABLET PO PRN (09:25)
[2017-10-16] MEDS ORDERED: CLOPIDOGREL BISULFATE 75 MG TABLET PO SCH (10:00)
[2017-10-16] MEDS ORDERED: (PENDING PHARMACY ID) (Ranitidine Hcl [Zantac 150 Mg Tablet] 150 MG) PO SCH (10:00)
[2017-10-16] MEDS ORDERED: VALSARTAN 80 MG TABLET PO SCH (10:00)
--- NOTE | 2017-10-16 10:00 | PROGRESS NOTE E ---
Progress Note NAME: FER UP : 1935 AGE: 82Y DATE: 10/16/2017 ROOM: [facility] SUBJECTIVE: The patient is lying in bed. The patient herself denies any complaints except for persistent pain of the right leg. The patient's son is present at the bedside, active in the patient's care. The patient has become quite confused overnight, pulled out her IV, and has required one-to-one care at this point. The patient has been afebrile, though her blood pressures have been in a good range. The patient does not articulate any particular concerns at this time. BRIEF HISTORY: The patient is an 82-year-old female that is known to the hospitalist service. The patient presented to the Emergency Department due to symptoms of delirium and falls resulting in a sprained right ankle. The patient had no evidence of acute fracture, but given the patient's significant delirium was referred to the hospitalist service. The patient herself is unable to voice any specific concerns at this time. REVIEW OF SYSTEMS: Unobtainable. MEDICATIONS: Reviewed. OBJECTIVE: GENERAL: The patient is an 82-year-old female who is awake, alert. She is oriented to person and place but not fully oriented to time nor situation, is very difficult to follow commands, does not appear to be distressed. VITAL SIGNS: As follows: Temperature is 97.3, pulse 73, respirations 17, blood pressure is 137/64, oxygen saturation is 98% on room air. SKIN: Warm and dry. No rash, not diaphoretic. HEENT: Pupils equal, round, reactive to light and accommodation. Conjunctivae pink. There is no evidence of JVP. CARDIOVASCULAR: Heart is regular. No rub. CHEST: Clear, symmetrical, unlabored. ABDOMEN: Soft, nontender, nondistended. BACK: No CVA tenderness or sacral edema. EXTREMITIES: The patient does have edema of the right lower extremity, obvious sprain with bruising, currently wrapped in supported Emmanuel. PSYCHIATRIC: The patient at this moment is quite pleasant. DIAGNOSTICS: Lab values are as follows. Hematology obtained on 10/16/2017: WBCs are 5.1, hemoglobin is 10.7, hematocrit is 30.9, platelet count is 186,000. Chemistry obtained on 10/16/2017: Sodium is 142, potassium 4.1, chloride is 109, carbon dioxide 24, BUN 11, creatinine is 0.79, glucose 96, calcium is 9.3. Iron is 32.1, TIBC is 295, percent saturation is 11, ferritin is 182, B12 is 94, folate is greater than 20. IMPRESSION AND PLAN: 1. FREQUENT FALLS. Uncertain of the exact etiology of this. Family reports actual syncopal-type episodes. The patient has had an extensive workup in the past, but it does not appear that she has had an event monitor, which is probably the next step. Will consider SNF placement in the interim as well as a physical therapy consult. Will proceed with MRI imaging but will discuss with family members first before putting this lady through an MRI machine. 2. ACUTE ENCEPHALOPATHY, MOST LIKELY EXACERBATED BY THE PATIENT'S DEMENTIA AND POSTCONCUSSIVE SYNDROME GIVEN THE PATIENT'S NUMEROUS FALLS. Will try to wean the patient from benzodiazepines since this can make her dementia and encephalopathy worse and give a trial of Buspar and see if there is improvement of this. The patient still requires one-to-one care. 3. IRON-DEFICIENCY ANEMIA. This appears to just be related to intake. Will encourage diet. 4. VASCULAR DEMENTIA. Once again, will try to wean from benzos. 5. DIASTOLIC DYSFUNCTION WITHOUT EVIDENCE OF ACUTE FAILURE. 6. PFO. 7. CEREBROVASCULAR DISEASE. Will continue the patient's aspirin and statin therapy. DISPOSITION: THE PATIENT IS A FULL CODE. Pending the patient's symptomatology and diagnostic findings, will re-evaluate in the a.m. Time spent on this followup, including assessment/plan, physical examination, patient education, review of records, and family meeting, is 35 minutes. DICTATING PHYSICIAN: CRIS BOSWELL NP [id number] PHY#: [id number] ID: [id number] JOB#: [id number] ACCT: [id number] cc: > PRINCED
[2017-10-16] MEDS ORDERED: BUSPIRONE HCL 10 MG TABLET PO ONE (10:30)
[2017-10-16] MEDS: VALSARTAN 40 MG TABLET PO SCH (10:56)
[2017-10-16] MEDS: MEMANTINE HCL 10 MG TABLET PO SCH ×2 (10:57→17:50)
[2017-10-16] MEDS: CLOPIDOGREL BISULFATE 75 MG TABLET PO SCH (10:57)
[2017-10-16] MEDS: SERTRALINE HCL 50 MG TABLET PO SCH (10:58)
[2017-10-16] MEDS: FLUTICASONE NASAL SPRAY 50 MCG/SPRY 120 SPRAY/16 GM NASL SCH (10:59)
[2017-10-16] MEDS: DOCUSATE SODIUM 100 MG CAPSULE PO SCH ×2 (10:59→17:50)
[2017-10-16] MEDS: FAMOTIDINE 20 MG TABLET PO SCH ×2 (10:59→22:32)
[2017-10-16] MEDS: NORMAL SALINE 1000 ML 1,000 ML IV PRN ×2 (11:00→23:25)
[2017-10-16] MEDS: BUSPIRONE HCL 10 MG TABLET PO SCH (22:32)
[2017-10-16] MEDS: SIMVASTATIN 40 MG TABLET PO SCH (22:32)
[2017-10-17] MEDS: ALPRAZOLAM 0.5 MG TABLET PO PRN ×2 (04:47→10:57)
[2017-10-17] MEDS: LANSOPRAZOLE 30 MG TAB.RAP.DR PO SCH (05:11)
[2017-10-17] MEDS: HEPARIN SOD (PORCINE) 5,000 UNIT/ML 1 ML SYRINGE SUBCUT SCH ×3 (05:13→22:31)
[2017-10-17] MEDS ORDERED: ASPIRIN 325 MG TABLET PO SCH (10:00)
[2017-10-17] MEDS: FLUTICASONE NASAL SPRAY 50 MCG/SPRY 120 SPRAY/16 GM NASL SCH (10:05)
[2017-10-17] MEDS: VALSARTAN 40 MG TABLET PO SCH (10:05)
[2017-10-17] MEDS: FAMOTIDINE 20 MG TABLET PO SCH ×2 (10:06→22:31)
[2017-10-17] MEDS: BUSPIRONE HCL 10 MG TABLET PO SCH ×2 (10:06→22:31)
[2017-10-17] MEDS: CLOPIDOGREL BISULFATE 75 MG TABLET PO SCH (10:06)
[2017-10-17] MEDS: SERTRALINE HCL 50 MG TABLET PO SCH (10:07)
[2017-10-17] MEDS: MEMANTINE HCL 10 MG TABLET PO SCH ×2 (10:07→16:59)
[2017-10-17] MEDS: DOCUSATE SODIUM 100 MG CAPSULE PO SCH ×2 (10:07→16:59)
[2017-10-17] MEDS ORDERED: ALPRAZOLAM 0.5 MG TABLET PO PRN (11:09)
--- NOTE | 2017-10-17 17:35 | PDOC PROGRESS REPORT ---
Subjective Progress Note for:: 10/17/17 Subjective:: No adverse events overnight. She did get quite anxious and a little bit combative and so her daughter spent the night for several hours in the room with patient. Patient was sitting up on the side of bed in apparent good spirits eating everything that was put in front of her this morning. Apparently she has been on a benzodiazepine for several years and an attempt has been made to taper her off of that while she is in the hospital. Her family is asking if she can be put on something to help her sleep at night. Reason For Visit: ENCEPHALOPATHY FALLS Physical Exam Vital Signs: Temp Pulse Resp BP Pulse Ox 97.6 F 76 18 128/77 H 97 10/17/17 08:00 10/17/17 14:00 10/17/17 08:00 10/17/17 08:00 10/17/17 08:00 Intake & Output 10/16/17 10/17/17 10/18/17 06:59 06:59 06:59 Intake Total 175 2821 Balance 175 2821 Weight 84.3 kg 84.3 kg General appearance: PRESENT: no acute distress, cooperative, well-developed, well-nourished Respiratory exam: PRESENT: clear to auscultation arlin. ABSENT: rales, rhonchi, wheezes Cardiovascular exam: PRESENT: RRR. ABSENT: diastolic murmur, rubs, systolic murmur Vascular exam: PRESENT: normal capillary refill GI/Abdominal exam: PRESENT: normal bowel sounds, soft. ABSENT: distended, guarding, mass, organolmegaly, rebound, tenderness Extremities exam: PRESENT: full ROM. ABSENT: clubbing, pedal edema Neurological exam: PRESENT: alert, awake, oriented to person, oriented to place Results Laboratory Results: 10/16/17 04:08 10/16/17 04:08 Assessment & Plan - Diagnosis (1) Frequent falls Is this a current diagnosis for this admission?: Yes Plan: Concern for a syncopal event. Her daughter said that she check orthostatic blood pressures on her home while there was some change it was not enough to qualify her for definitive orthostatic hypotension. The patient supposed to be walking with an assistive device at home but usually forgets to use it. She has not had any adverse events on telemetry, and so we will get her set up for an event monitor whenever she leaves the hospital. We are trying to get her placed in rehab to help improve her mobility, and the family would like to get her placed long-term because she has been too difficult to take care of at home. (2) Encephalopathy acute Is this a current diagnosis for this admission?: Yes Plan: After talking with her son and granddaughter, I suspect this patient is actually at baseline. I believe having her out of her usual environment, combined with her dementia, and possibly not having the benzodiazepine in her system that she is usually accustomed to having, are contributing to issues like she had last night. BuSpar has been started, which I will continue, but I will add Restoril at night, because she is used to being on a benzodiazepine. - Time Time Spent with patient: 25-34 minutes Medications reviewed and adjusted accordingly: Yes
[2017-10-17] MEDS ORDERED: TEMAZEPAM 7.5 MG CAPSULE PO SCH (22:00)
[2017-10-17] MEDS: SIMVASTATIN 40 MG TABLET PO SCH (22:31)
[2017-10-18] MEDS: LANSOPRAZOLE 30 MG TAB.RAP.DR PO SCH (05:29)
[2017-10-18] MEDS: HEPARIN SOD (PORCINE) 5,000 UNIT/ML 1 ML SYRINGE SUBCUT SCH ×2 (05:29→12:49)
[2017-10-18] MEDS: NORMAL SALINE 1000 ML 1,000 ML IV PRN (05:38)
[2017-10-18] MEDS: SERTRALINE HCL 50 MG TABLET PO SCH (09:12)
[2017-10-18] MEDS: DOCUSATE SODIUM 100 MG CAPSULE PO SCH (09:12)
[2017-10-18] MEDS: CLOPIDOGREL BISULFATE 75 MG TABLET PO SCH (09:12)
[2017-10-18] MEDS: FAMOTIDINE 20 MG TABLET PO SCH (09:12)
[2017-10-18] MEDS: MEMANTINE HCL 10 MG TABLET PO SCH (09:13)
[2017-10-18] MEDS: VALSARTAN 40 MG TABLET PO SCH (09:13)
[2017-10-18] MEDS: FLUTICASONE NASAL SPRAY 50 MCG/SPRY 120 SPRAY/16 GM NASL SCH (09:13)
[2017-10-18] MEDS: BUSPIRONE HCL 10 MG TABLET PO SCH (09:16)
--- NOTE | 2017-10-18 10:39 | PDOC TRANSFER SUMMARY ---
General - Admit/Disc Date/PCP Admission Date/Primary Care Provider: 10/15/17 19:28 MIKE PARNELL MD Discharge Date: 10/18/17 - Discharge Diagnosis (1) Frequent falls Is this a current diagnosis for this admission?: Yes Summary: She is supposed to ambulate at home with an assistive device, usually a 2 wheel walker, but she either forgets to use it or just does not want to use it and she wants up falling a lot. She has had several witnessed and unwitnessed falls at home. (2) Encephalopathy acute Is this a current diagnosis for this admission?: Yes Summary: Resolved. Some of this was due to sundowning due to her cognitive impairment combined with being in an unfamiliar environment, along with a change that was made in her medications, namely her Xanax. Adjustments to her medication regimen have been made and she has since come back to baseline according to her family. (3) Pre-syncope Is this a current diagnosis for this admission?: Yes Summary: She has had a cardiac workup which has been unremarkable thus far, and the only thing she has not had done has been to wear an event monitor. Cardiology will follow her up and set up an event monitor as an outpatient. (4) History of dementia Is this a current diagnosis for this admission?: Yes Summary: Her family have decided that they are no longer able to care for her at home. She is very friendly and easily redirected but requires a lot of supervision. If left unattended she will try to get up and walk and will not use an assistive device unless directed to do so and therefore she falls unless someone is with her. - Additional Information Resuscitation Status: Full Code Discharge Diet: Cardiac Discharge Activity: Supervised Activity Prescriptions: Alprazolam [Xanax 0.5 mg Tablet] 0.5 mg PO Q8HP PRN #10 tablet PRN Reason: Temazepam [Restoril 7.5 mg Capsule] 7.5 mg PO QHS #5 capsule Home Medications: Clopidogrel Bisulfate [Plavix 75 mg Tablet] 75 mg PO DAILY 10/15/17 Fluticasone Propionate [Flonase Nasal [place] 50 Mcg/[place] 16 gm] 1 spray NASL DAILY 10/15/17 Ipratropium [place] [Atrovent 0.06% Nasal [place]] 1 spray NASL DAILYP PRN Meclizine HCl [Antivert 25 mg Tablet] 25 mg PO TIDP PRN 10/15/17 Memantine HCl [Namenda 10 mg Tablet] 10 mg PO BID 10/15/17 Omeprazole 40 mg PO DAILY 10/15/17 Sertraline HCl [Zoloft] 100 mg PO DAILY 10/15/17 Simvastatin [Zocor 40 mg Tablet] 40 mg PO QHS 10/15/17 Alprazolam [Xanax 0.5 mg Tablet] 0.5 mg PO Q8HP PRN #10 tablet 10/18/17 Buspirone HCl [Buspar 10 mg Tablet] 5 mg PO QAM tablet 10/18/17 Buspirone HCl [Buspar 10 mg Tablet] 10 mg PO QHS tablet 10/18/17 Docusate Sodium [Colace 100 mg Capsule] 100 mg PO BID capsule 10/18/17 Temazepam [Restoril 7.5 mg Capsule] 7.5 mg PO QHS #5 capsule 10/18/17 Valsartan [Diovan 40 mg Tablet] 40 mg PO DAILY tablet 10/18/17 History of Present Illness Admission Date/PCP: 10/15/17 19:28 MIKE PARNELL MD History of Present Illness: FER UP is a 82 year old female who was admitted from home after frequent falls. Apparently she will get up and try to walk unattended and she supposed to use an assistive device and will not do so unless somebody hands it to her and is with her to make her use it. She has been worked up for syncope in the past and has had a negative workup thus for but the only thing that has not been done has been to put on an event monitor. Hospital Course Hospital Course: She has had no adverse events here. 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 She has been on Xanax for a very long time, and earlier in her hospitalization attempt was made to try to get her off of the Xanax. She has been started on BuSpar instead of scheduled doses of Xanax, but she still has small as needed doses available. She had a very rough night a couple nights ago and got very agitated and did not sleep. Part of this is due to sundowning, but there could be a component of mild benzodiazepine withdrawal, simply because she is elderly and has been on this medication for many years, so we added a dose of Restoril at night. She had her first dose of it last night, and she slept very well. She has become increasingly more difficult for her family care for at home. She is easily redirected but requires more supervision than they are able to provide. They are interested in placement for her. Case management has become involved in a bed has been obtained and she is being transferred today in good condition. Her labs and exam are reassuring. Physical Exam Vital Signs: Temp Pulse Resp BP Pulse Ox 98.1 F 67 24 H 117/63 98 10/18/17 07:33 10/18/17 07:33 10/18/17 07:33 10/18/17 07:33 10/18/17 07:33 Intake & Output 10/17/17 10/18/17 10/19/17 06:59 06:59 06:59 Intake Total 2821 420 Output Total 200 Balance 2821 220 Weight 84.3 kg 84.3 kg General appearance: PRESENT: no acute distress, cooperative, well-developed, well-nourished Head exam: PRESENT: atraumatic, normocephalic Respiratory exam: PRESENT: clear to auscultation arlin. ABSENT: rales, rhonchi, wheezes Cardiovascular exam: PRESENT: RRR. ABSENT: diastolic murmur, rubs, systolic murmur Vascular exam: PRESENT: normal capillary refill GI/Abdominal exam: PRESENT: normal bowel sounds, soft. ABSENT: distended, guarding, mass, organolmegaly, rebound, tenderness Extremities exam: ABSENT: clubbing, pedal edema Musculoskeletal exam: PRESENT: normal inspection. ABSENT: deformity Neurological exam: PRESENT: alert, awake, oriented to person, oriented to place Results Laboratory Results: 10/16/17 04:08 10/16/17 04:08 Transfer Plan - Disposition Transfer Plan: Plan to transfer to [place] today for rehab. Long-term placement is also a possibility. - Time Spent with Patient Time spent with patient: Greater than 30 Minutes Qualifiers - * PATIENT BEING DISCHARGED WITH ANY OF THE FOLLOWING DIAGNOSIS: No
[2017-10-18 12:17] VITALS: BP 102/42
== END 2017-10-18 18:03 | DRG 884 ==
LOC: ER 16:34 → EH 19:28 → 5 22:17
PROVIDERS: ADMIT Internal Medicine; ATTEND Internal Medicine
PROC: 3E0F73Z Introduction of Anti-inflammatory into Respiratory Tract, Via Natural or Artificial Opening (ICD-10-PCS; principal; 2017-10-15)
DX: F01.50 Vascular dementia, unspecified severity, without behavioral disturbance, psychotic disturbance, mood disturbance, and anxiety (principal); G93.40 Encephalopathy, unspecified; Q21.1 Atrial septal defect; S93.401A Sprain of unspecified ligament of right ankle, initial encounter; W19.XXXA Unspecified fall, initial encounter; D64.9 Anemia, unspecified; E78.00 Pure hypercholesterolemia, unspecified; K21.9 Gastro-esophageal reflux disease without esophagitis; M19.90 Unspecified osteoarthritis, unspecified site; F32.9 Major depressive disorder, single episode, unspecified; Z87.891 Personal history of nicotine dependence; Z60.2 Problems related to living alone; Z79.899 Other long term (current) drug therapy; Z90.49 Acquired absence of other specified parts of digestive tract; Z90.710 Acquired absence of both cervix and uterus; Z88.2 Allergy status to sulfonamides
CPT/HCPCS: 36415; 80048; 80053; 80307; 81001; 82550; 82553; 82607; 82728; 82746; 83540; 83550; 84443; 84484; 85025; 85045; 93005; 93010; 96360; 99285; J1644; J3490; J7030

== ENCOUNTER → 2018-02-20 | Outpatient (CLI) | payer MEDICARE, BC ==
--- NOTE | 2018-02-25 13:02 | WOMENS IMAGING REPORT ---
EXAM DESCRIPTION: BILAT SCREENING MAMMO W/CAD COMPLETED DATE/TIME: 02/20/2018 2:49 pm REASON FOR STUDY: SCREENING MAMMO Z12.31 ENCNTR SCREEN MAMMOGRAM FOR MALIGNANT NEOPLASM OF KRIS COMPARISON: 11/06/2016. TECHNIQUE: Standard craniocaudal and mediolateral oblique views of each breast recorded using digita l acquisition. LIMITATIONS: None. FINDINGS: No masses, calcifications or architectural distortion. No areas of suspicion. Read with the assistance of CAD. .[facility] - R2 Cenova Version 1.3 .[facility] - R2 Cenova Version 1.3 .[facility] - R2 Cenova Version 2.4 .[facility] [place] R2 Cenova Version 2.4 .[facility] - R2 Shirt Ironer Supervisor Version 9.2 IMPRESSION: NORMAL MAMMOGRAM. BIRADS 1. BREAST DENSITY: b. There are scattered areas of fibroglandular density. BIRAD: 1 NEGATIVE RECOMMENDATION: ROUTINE SCREENING COMMENT: The patient has been notified of the results by letter per SA requirements. Additional no tification policies are in place for contacting patient with suspicious or incomplete findings. Quality ID #225: The [employer] recommends an annual screening mammogram for women aged 40 years or over. This facility utilizes a reminder system to ensure that all patients receive reminder letters, and/or direct phone calls for appointments. This includes reminders for routine scr eening mammograms, diagnostic mammograms, or other Breast Imaging Interventions when appropriate. Th is patient will be placed in the appropriate reminder system. The [employer] (ACR) has developed recommendations for screening MRI of the breast s in certain patient populations, to be used in conjunction with mammography. Breast MRI surveillanc e may be appropriate for women with more than 20% lifetime risk of developing breast cancer as deter mined by genetic testing, significant family history of the disease, or history of mantle radiation f or Hodgkins Disease. ACR Practice Guidelines 2008. TECHNICAL DOCUMENTATION: FINDING NUMBER: (1) ASSESSMENT: (1) JOB ID: [id number] [employer]- All Rights Reserved Reading location - IP/workstation name: [facility]
== END ==
LOC: WI 14:08
PROVIDERS: ATTEND Family Medicine
DX: Z12.31 Encounter for screening mammogram for malignant neoplasm of breast (principal)
CPT/HCPCS: 77067

== ENCOUNTER → 2019-02-24 | Outpatient (CLI) | payer MEDICARE, BC, MEDICAID ==
--- NOTE | 2019-02-24 12:37 | WOMENS IMAGING REPORT ---
EXAM DESCRIPTION: BILAT SCREENING MAMMO W/CAD COMPLETED DATE/TIME: 02/24/2019 11:12 am REASON FOR STUDY: Z12.31 SCREENING MAMMO Z12.31 ENCNTR SCREEN MAMMOGRAM FOR MALIGNANT NEOPLASM OF B RE COMPARISON: 2018 EXAM PARAMETERS: Standard craniocaudal and mediolateral oblique views of each breast recorded using digital acquisition. Read with the assistance of CAD. .[facility] - R2 Watch Parts Inspector Version 9.2 LIMITATIONS: None. FINDINGS: No suspicious masses, suspicious calcifications or architectural distortion. No areas of c oncern. IMPRESSION: Negative MAMMOGRAM. BIRADS 1 BREAST DENSITY: b. There are scattered areas of fibroglandular density. BIRAD: ASSESSMENT: 1 NEGATIVE RECOMMENDATION: ROUTINE SCREENING COMMENT: The patient has been notified of the results by letter per MQSA requirements. Additional no tification policies are in place for contacting patient with suspicious or incomplete findings. Quality ID #225: The [place] [employer] recommends an annual screening mammogram for women aged 40 years or over. This facility utilizes a reminder system to ensure that all patients receive reminder letters, and/or direct phone calls for appointments. This includes reminders for routine scr eening mammograms, diagnostic mammograms, or other Breast Imaging Interventions when appropriate. Th is patient will be placed in the appropriate reminder system. TECHNICAL DOCUMENTATION: FINDING NUMBER: (1) ASSESSMENT: (1) JOB ID: [id number] [employer]- All Rights Reserved Reading location - IP/workstation name: [email or web address]
== END ==
LOC: WI 10:48
PROVIDERS: ATTEND Family Medicine
DX: Z12.31 Encounter for screening mammogram for malignant neoplasm of breast (principal)
CPT/HCPCS: 77067